=== PATIENT | female | born 1950 | race Caucasian/White ===

== ENCOUNTER 2020-06-12 10:16 | Emergency (ER) | payer OTHER, SELFPAY ==
[2020-06-12 10:16] VITALS: BP 132/73; PULSE 67; RESP 18; TEMP 36.7; O2SAT 97; BMI 22.3
--- NOTE | 2020-06-12 10:43 | ECG_ITS ---
APPROVED REPORT Exam: Resting ECG HR:66 bpm ECG Measurements Heart Rate 66 AXES NC 148 P 53 QRSd 92 QRS 62 QT 442 T 30 QTc 463 Conclusion Normal sinus rhythm Normal ECG Electronically signed by : Darrick Benedict, 06/13/2020 06:37:16
[2020-06-12 10:47] LABS: POC Glucose,Bedside 140 (70-110)
--- NOTE | 2020-06-12 10:47 | HMH.EDGENADL ---
ED Disposition Clinical Impression: Peripheral vertigo Qualifiers: Laterality: unspecified laterality Qualified Code(s): H81.399 - Other peripheral vertigo, unspecified ear Disposition: Home, Self-Care Condition on Discharge: Good Instructions: DI for Vertigo Prescriptions: Promethazine HCl [Phenergan 25mg tab] 25 mg PO Q6HP PRN #10 tab PRN Reason: Nausea And Vomiting Prescription Printed Meclizine HCl [Antivert 25mg tablet] 25 mg PO TIDP PRN #15 tab PRN Reason: Vertigo Prescription Printed Referrals: PCP,No [Primary Care Provider] - - Critical Care Critical Care Time: No Attestation: On 06/12/20, the high probability of a clinically significant, sudden or life threatening deterioration of the following system(s) required my full and direct attention, intervention and personal management. The time I documented below is in addition to time spent performing reported procedures but includes the following listed in this critical care notation. Medical Decision Making - Rush Inquiry Pt receiving controlled substance: No Vital Signs: 06/12/20 10:16 06/12/20 11:16 06/12/20 11:32 Temperature 98.0 F Temperature Source Oral Pulse Rate Pulse Rate [Left Radial] 67 69 71 Respiratory Rate 18 18 18 Blood Pressure Blood Pressure [Right Arm] 132/73 133/70 131/78 Blood Pressure Mean [Right Arm] 92 91 95 Blood Pressure Source [Right Arm] Automatic Cuff Blood Pressure Position [Right Arm] Sitting 02 Sat by Pulse Oximetry 97 98 100 Oxygen Delivery Method Room Air Room Air Room Air 06/12/20 12:39 06/12/20 13:00 06/12/20 15:07 Temperature 98.0 F Temperature Source Pulse Rate 69 Pulse Rate [Left Radial] 85 75 Respiratory Rate 18 18 Blood Pressure 102/56 L Blood Pressure [Right Arm] 113/61 109/62 L Blood Pressure Mean [Right Arm] 78 77 Blood Pressure Source [Right Arm] Blood Pressure Position [Right Arm] 02 Sat by Pulse Oximetry 95 100 Oxygen Delivery Method Room Air Room Air Room Air - Lab Data Lab results reviewed: Yes: I reviewed the patient's lab results. Lab Results 06/12/20 10:35: WBC 7.7, RBC 4.77, Hgb 14.4, Hct 43.9, MCV 91.9, MCH 30.1, MCHC 32.7, RDW 13.4, Plt Count 271, MPV 9.0, Neut % (Auto) 84.4 H, Lymph % (Auto) 10.2, [place] % (Auto) 3.9, Eos % (Auto) 1.1, Baso % (Auto) 0.5, Neut # (Auto) 6.5, Lymph # (Auto) 0.8, [place] # (Auto) 0.3, Eos # (Auto) 0.1, Baso # (Auto) 0.0 06/12/20 10:35: Sodium 134 L, Potassium 3.5, Chloride 98, Carbon Dioxide 29, Anion Gap 10.5, BUN 17, Creatinine 0.90, Estimated Creat Clear 50, Estimated GFR 62, Est GFR ( Amer) 75, Glucose 178 H, Calcium 9.7, Total Bilirubin 0.8, AST 42 H, ALT 38, Alkaline Phosphatase 92, Troponin I < 0.01, Total Protein 7.4, Albumin 4.4, Globulin 3.0, Albumin/Globulin Ratio 1.5 06/12/20 10:35: SARS-CoV-2 IgG Ab (Rapid) Negative, SARS-CoV-2 IgM Ab (Rapid) Negative 06/12/20 10:38: POC Glucose 140 H 06/12/20 14:00: Urine Color Yellow, Urine Appearance Clear, Urine pH 6.5, Ur Specific [place] 1.010, Urine Protein Negative, Urine Glucose (UA) Negative, Urine Ketones 1+, Urine Blood Negative, Urine Nitrate Negative, Urine Bilirubin Negative, Urine Urobilinogen 0.2, Ur Leukocyte Esterase Negative, Urine RBC None, Urine WBC None, Ur Squamous Epith Cells 3-5, Urine Bacteria None Result diagrams: 06/12/20 10:35 06/12/20 10:35 Orders (Tests/Meds): ED MEDICATIONS Discontinued Medications Generic Name Dose Route Start Last Admin Trade Name Freq PRN Reason Stop Dose Admin Diazepam 2 mg 06/12/20 11:20 06/12/20 11:46 Diazepam 10mg/2ml Syringe IV 06/12/20 11:21 2 mg ONCE ONE Administration Sodium Chloride 1,000 mls @ 999 mls/hr 06/12/20 11:15 06/12/20 11:07 Sod Chlor 0.9% 1000ml Bag IV 06/12/20 12:15 999 mls/hr .Q1H1M MATILDE Administration Iopamidol 100 ml 06/12/20 13:13 06/12/20 13:14 Iopamidol-370 (76%);100ml Bottle IV 06/12/20 13:14 100 ml ONCE ONE Administration Meclizine
[2020-06-12 11:07] LABS: Basophils % 0.5 % (0.1-2.0); Eosinophils # 0.1 K/mm3 (0.0-0.4); Eosinophils % 1.1 % (0.1-12.0); Hematocrit 43.9 % (37.0-47.0); Hemoglobin 14.4 g/dL (12.2-16.2); Lymphocytes # 0.8 K/mm3 (0.7-4.5); Lymphocytes % 10.2 % (10-50); Mean Corpuscular HGB Conc 32.7 g/dL (31.8-35.4); Mean Corpuscular Hemoglobin 30.1 pg (27.0-31.2); Mean Corpuscular Volume 91.9 fl (81-99); Monocytes # 0.3 K/mm3 (0.1-1.0); Monocytes % 3.9 % (1.7-9.3); Neutrophils # 6.5 K/mm3 (1.8-7.8); Neutrophils % 84.4 % (37.0-80.0); Platelet Count 271 K/mm3 (142-424); Red Blood Count 4.77 M/mm3 (4.20-5.40); Red Cell Distribution Width 13.4 % (11.5-17.5); White Blood Count 7.7 K/mm3 (4.8-10.8)
[2020-06-12 11:08] LABS: Alanine Aminotransferase 38 U/L (12-78); Albumin Level 4.4 g/dl (3.5-5.0); Albumin/Globulin Ratio 1.5 (1.1-1.8); Alkaline Phosphatase 92 U/L (38-126); Anion Gap 10.5 mEq/L (5-15); Aspartate Amino Transferase 42 U/L (14-36); Bilirubin,Total 0.8 mg/dl (0.2-1.3); Blood Urea Nitrogen 17 mg/dl (7-17); Calcium 9.7 mg/dl (8.4-10.2); Carbon Dioxide 29 mmol/L (22.0-30.0); Chloride 98 mmol/L (98-107); Creatinine Clearance Estimated 50 mL/min (50-200); Estimated Glomerular Filt Rate 62 ml/min (>60); GFR (African American) 75 ML/MIN (>60); Glucose 178 mg/dl (74-100); Potassium 3.5 mmoL/L (3.5-5.1); Sodium 134 mmol/L (136-145); Total Protein,Serum 7.4 g/dl (6.3-8.2)
--- NOTE | 2020-06-12 11:14 | CT_ITS ---
Procedure: CT ANGIO HEAD CLINICAL HISTORY: vertigo COMPARISON: No exams were available for comparison TECHNIQUE: IV Contrast: 100ml Isovue 370 Axial images obtained with sagittal and coronal reformats. All CT scans at the facility use one or more dose reduction, viz: automated exposure control, ma/kV adjustment per patient size (including targeted exams where dose is matched to indication, i.e. head), or iterative reconstruction technique. FINDINGS: There is excellent vascular opacification. The [id number] appears normal with no evidence of aneurysm or significant stenosis. The right middle cerebral artery and anterior cerebral artery appear grossly normal. The intracranial portion of the right internal carotid is unremarkable. The left middle cerebral artery and left anterior cerebral artery appear grossly normal. The intracranial portion of the left internal carotid is normal. The posterior cerebral circulation is unremarkable with no evidence of aneurysm or significant stenosis. Again noted is a carola cisterna magna a normal variation. There is no significant cortical atrophy or ischemic white matter changes. IMPRESSION: Essentially unremarkable CT angiogram of the brain Dictated by: Dr. Tj Otto MD 06/12/2020 19:15 Dr. Tj Otto MD in [facility] 06/12/2020 19:15
--- NOTE | 2020-06-12 11:14 | CT_ITS ---
PROCEDURE: CT HEAD/BRAIN WO CON CLINICAL INDICATION: vertigo headache, dizziness COMPARISON: No exams were available for comparison TECHNIQUE: Axial images obtained. All CT scans at the facility use one or more dose reduction, viz: automated exposure control, ma/kV adjustment per patient size (including targeted exams where dose is matched to indication, i.e. head), or iterative reconstruction technique. FINDINGS: No midline shift, mass effect, intracranial hemorrhage, hydrocephalus, or extra-axial fluid collection is evident. There is a carola cisterna magna a normal variation the calvarium has an unremarkable appearance. No mastoid effusion. The internal auditory canals appear normal. No sinus air-fluid level. IMPRESSION: No acute intracranial finding Dictated by: Dr. Tj Otto MD 06/12/2020 14:02 Dr. Tj Otto MD in [facility] 06/12/2020 14:02
--- NOTE | 2020-06-12 11:14 | CT_ITS ---
Procedure: CT ANGIO HEAD CLINICAL HISTORY: vertigo COMPARISON: CT CT HEAD/BRAIN WO CON from 06/12/2020 TECHNIQUE: IV Contrast: 100ml Isovue 370 Axial images obtained with sagittal and coronal reformats. All CT scans at the facility use one or more dose reduction, viz: automated exposure control, ma/kV adjustment per patient size (including targeted exams where dose is matched to indication, i.e. head), or iterative reconstruction technique. FINDINGS: There is excellent vascular opacification. The [id number] appears normal with no evidence of aneurysm or significant stenosis. The right middle cerebral artery and anterior cerebral artery appear grossly normal. The intracranial portion of the right internal carotid is unremarkable. The left middle cerebral artery and left anterior cerebral artery appear grossly normal. The intracranial portion of the left internal carotid is normal. The posterior cerebral circulation is unremarkable with no evidence of aneurysm or significant stenosis. Again noted is a carola cisterna magna a normal variation. There is no significant cortical atrophy or ischemic white matter changes. There is prominent apical pleural parenchymal scarring bilaterally. Suggest consideration of follow-up PA and lateral chest for better evaluation. IMPRESSION: Essentially unremarkable CT angiogram of the brain Dictated by: Dr. Tj Otto MD 07/20/2020 15:39 Dr. Tj Otto MD in [facility] 07/20/2020 15:39
[2020-06-12 11:16] VITALS: BP 133/70; PULSE 69; RESP 18; O2SAT 98
[2020-06-12 11:20] LABS: Troponin I < 0.01 ng/ml (0.00-0.034)
[2020-06-12 11:32] VITALS: BP 131/78; PULSE 71; RESP 18; O2SAT 100
[2020-06-12 11:38] LABS: Coronavirus 19 IgG Antibody Negative (Negative); Coronavirus 19 IgM Antibody Negative (Negative)
[2020-06-12 12:39] VITALS: BP 113/61; PULSE 85; RESP 18; O2SAT 95
[2020-06-12 13:00] VITALS: BP 109/62; PULSE 75; O2SAT 100
[2020-06-12 14:05] LABS: Microscopic, Urine URINE MICROSCOPIC (MICROSCOPIC)
[2020-06-12 14:19] LABS: Appearance,Urine CLEAR (Clear); Bilirubin,Urine Negative (Negative); Blood, Urine Negative (Negative); Color,Urine YELLOW (Yellow); Glucose,Urine (UA) Negative (Negative); Ketones,Urine 1+ (Negative); Leukocyte Esterase,Urine Negative (Negative); Nitrate,Urine Negative (Negative); PH,Urine 6.5 (5.0-8.5); Protein,Urine Negative (Negative); Urobilinogen,Urine 0.2 EU/dl (0.2)
[2020-06-12 15:07] VITALS: BP 102/56; PULSE 69; RESP 18; TEMP 36.7; O2SAT 100
[2020-07-26 13:03] LABS: POC Glucose,Bedside 190 (70-110)
== END 2020-06-12 14:58 | disposition home or self-care (01) ==
PROVIDERS: Emergency Provider Emergency Medicine
DX: H81.399 Other peripheral vertigo, unspecified ear (principal); R73.9 Hyperglycemia, unspecified; Z20.822 Contact with and (suspected) exposure to COVID-19; Z01.84 Encounter for antibody response examination
CPT/HCPCS: 70450; 70496; 70498; 80053; 81001; 82962; 84484; 85025; 86328; 93005; 96365; 96375; 99284; J2405; Q9967; U0003

== ENCOUNTER 2021-11-28 14:52 | Outpatient (RCR) | payer OTHER, SELFPAY ==
--- NOTE | 2021-11-28 15:58 | HMH.PTOPEV ---
PT Outpatient Evaluation Rehab PT Outpatient Evaluation Start: 11/28/21 15:48 Freq: Status: Active Protocol: Document 11/28/21 15:48 MEGADARBY (Rec: 11/28/21 15:57 ISAURAMINERVA [id number]) Electronically Signed By Kanu Lance PT 11/28/21 15:48 Outpatient Therapy Subjective History Subjective History This is the initial Physical Therapy vestibular evaluation for Kath Forbes. Pt is a 71 y/ o female referred to PT for c/ o dizziness . Pt reports she had vertigo ~ 1 year ago, and it had self resolution. Pt reports this bout began last week while at the [employer] . Pt reports stylist laid her back and she began having spinning feeling and nausea. Pt reports she went home and began taking Meclazine daily to relieve symptoms. Chief Complaint Other Symptom Type Other Symptoms Relieved By Rest/Positioning Symptoms Aggravated By Supine,Bending/Stooping, Twisting Prior Functional Limitations None Current Functional Limitations Bending/Stooping Symptom Description Intermittent Balance Eval Subjective Hx of Complaint Comment began insidiously 1 week ago at [facility] Chief Complaint vertigo Yes Prior Functional Limitations Prior Functional [place] Level none Hx of Falls Hx Falls No Gait/Posture Asssessment General Gait Observation No Deviations/Normal Assistive Devices None / NA Level of Transfer Assist Independent Hip Observation in Gait Swing No Deviation Hip Observation in Gait Stance No Deviation Ankle/Foot Observation in Gait Swing No Deviation Ankle/Foot Observation in Gait Stance No Deviation Body Alignment Posture Relaxed Nystagmus Nystagmus Presence Bilateral Nystagmus Description Right Direction,Geotropic,Left Torsion Outpatient Therapy Assessment Impairments Problems/Impairmments Impaired Balance,Impaired Self Care/Self Management Prognosis Rehab Potential Good Clinical Impression Consistent with Diagnosis Yes Short Term Goals Number of Weeks 3 Improve Balance Yes: decreased c/o vertigo Patient to be Ind w/ HEP Yes [facility] Goals Number of Weeks 6 Improve A
== END 2021-11-28 14:55 | disposition home or self-care (01) ==
LOC: PT 14:52
PROVIDERS: Visit Provider Family Medicine
DX: R42 Dizziness and giddiness (principal)
CPT/HCPCS: 97110; 97163

== ENCOUNTER 2022-09-13 21:03 | Emergency (ER) | payer OTHER, SELFPAY ==
[2022-09-13 21:10] VITALS: BP 148/71; PULSE 70; O2SAT 97
[2022-09-13 21:16] VITALS: BP 148/71; PULSE 69; RESP 18; TEMP 36.7; O2SAT 98; BMI 23.1
--- NOTE | 2022-09-13 21:19 | XR_ITS ---
PROCEDURE INFORMATION: Exam: XR Pelvis Exam date and time: 09/13/2022 9:47 PM Age: 72 years old Clinical indication: Injury or trauma; Fall; Blunt trauma (contusions or hematomas); Does not apply; Pelvic region; Patient HX: Denies any pelvic/hip pain TECHNIQUE: Imaging protocol: Radiologic exam of the pelvis. Views: 1 or 2 view. COMPARISON: CR [id number] HIP LT 2-3V W/PELVIS IF PERFOR 11/21/2016 4:32 PM FINDINGS: Bones/joints: Unremarkable. No acute fracture. Soft tissues: Unremarkable. IMPRESSION: No acute findings.
--- NOTE | 2022-09-13 21:19 | XR_ITS ---
PROCEDURE INFORMATION: Exam: XR Chest Exam date and time: 09/13/2022 9:48 PM Age: 72 years old Clinical indication: Injury or trauma; Fall; Blunt trauma (contusions or hematomas); Patient HX: Denies any chest pain TECHNIQUE: Imaging protocol: Radiologic exam of the chest. Views: 1 view. COMPARISON: CT ANGIO NECK 06/12/2020 12:11 PM FINDINGS: Lungs: Coarse interstitial lung markings likely chronic. Granulomatous change. No consolidation. Pleural spaces: Unremarkable. No pleural effusion. No pneumothorax. Heart/Mediastinum: Unremarkable. No cardiomegaly. Bones/joints: Unremarkable. IMPRESSION: No acute findings.
--- NOTE | 2022-09-13 21:19 | CT_ITS ---
PROCEDURE INFORMATION: Exam: CT Maxillofacial Without Contrast Exam date and time: 09/13/2022 10:19 PM Age: 72 years old Clinical indication: Injury or trauma; Blunt trauma (contusions or hematomas); Patient HX: Bruising to entire right side of face due to fall. TECHNIQUE: Imaging protocol: Computed tomography of the face without contrast. Radiation optimization: All CT scans at this facility use at least one of these dose optimization techniques: automated exposure control; mA and/or kV adjustment per patient size (includes targeted exams where dose is matched to clinical indication); or iterative reconstruction. REPORTING DATA: Count of CT and Cardiac NM exams in prior 12 months: This patient has received 2 known CTs and 0 known cardiac nuclear medicine studies in the 12 months prior to the current study. COMPARISON: CT HEAD/BRAIN WO CON 09/13/2022 10:16 PM FINDINGS: Orbital cavities: Orbits are normal. Globes are unremarkable. Bones/joints: No acute fracture. Paranasal sinuses: Normal. No air-fluid levels. Soft tissues: Unremarkable. IMPRESSION: No acute findings.
--- NOTE | 2022-09-13 21:19 | CT_ITS ---
PROCEDURE INFORMATION: Exam: CT Head Without Contrast Exam date and time: 09/13/2022 10:16 PM Age: 72 years old Clinical indication: Injury or trauma; Fall; Blunt trauma (contusions or hematomas); Consciousness not specified; Patient HX: Patient fell, bruising to left side of face. ; Additional info: [facility] TECHNIQUE: Imaging protocol: Computed tomography of the head without contrast. Radiation optimization: All CT scans at this facility use at least one of these dose optimization techniques: automated exposure control; mA and/or kV adjustment per patient size (includes targeted exams where dose is matched to clinical indication); or iterative reconstruction. REPORTING DATA: Count of CT and Cardiac NM exams in prior 12 months: This patient has received 2 known CTs and 0 known cardiac nuclear medicine studies in the 12 months prior to the current study. COMPARISON: CT HEAD/BRAIN WO CON 06/12/2020 12:07 PM FINDINGS: Brain: Prominent retrocerebellar CSF space is unchanged. Cerebral ventricles: No ventriculomegaly. Paranasal sinuses: No fluid levels. Mastoid air cells: Visualized mastoid air cells are well aerated. Bones/joints: No acute fracture. Soft tissues: Right maxillary soft tissue swelling. IMPRESSION: No acute intracranial findings.
--- NOTE | 2022-09-13 21:19 | CT_ITS ---
PROCEDURE INFORMATION: Exam: CT Cervical Spine Without Contrast Exam date and time: 09/13/2022 10:16 PM Age: 72 years old Clinical indication: Injury or trauma; Fall; Blunt trauma TECHNIQUE: Imaging protocol: Computed tomography of the cervical spine without contrast. Radiation optimization: All CT scans at this facility use at least one of these dose optimization techniques: automated exposure control; mA and/or kV adjustment per patient size (includes targeted exams where dose is matched to clinical indication); or iterative reconstruction. REPORTING DATA: Count of CT and Cardiac NM exams in prior 12 months: This patient has received 2 known CTs and 0 known cardiac nuclear medicine studies in the 12 months prior to the current study. COMPARISON: CT ANGIO NECK 06/12/2020 12:11 PM FINDINGS: Bones/joints: No acute fracture. Normal alignment. No significant disc bulge or herniation. No severe spinal canal stenosis. No significant neural foraminal narrowing. Multilevel degenerative disc and joint space changes most pronounced at C5/6. Lungs: Lung apices are normal. Soft tissues: Unremarkable. IMPRESSION: No acute findings.
--- NOTE | 2022-09-13 21:19 | XR_ITS ---
PROCEDURE INFORMATION: Exam: XR Left Ankle Exam date and time: 09/13/2022 9:52 PM Age: 72 years old Clinical indication: Injury or trauma; Blunt trauma; Patient HX: C/O left ankle pain S/P fall TECHNIQUE: Imaging protocol: Radiologic exam of the left ankle. Views: 3 or more views. COMPARISON: CR [id number] ANKLE-LT-3 VIEWS 11/21/2016 4:34 PM FINDINGS: Bones/joints: Normal. Soft tissues: Normal. IMPRESSION: No acute findings.
--- NOTE | 2022-09-13 21:20 | PC.NURSE ---
Dr. Crawford at [facility]
--- NOTE | 2022-09-13 21:21 | HMH.EDFALL ---
Discharge Plan Disposition Patient Disposition: Home, Self-Care Prescriptions Prescriptions: New ibuprofen 400 mg tablet 400 mg PO Q8H PRN (Reason: fever or pain) Qty: 30 0RF Referrals Follow up/Referrals: Calin Poon DO [Staff Physician] - 3 days Dm Chaparor MD [Primary Care Provider] - See instructions Activity Restrictions/Add. Instructions Additional Instructions/Restrictions: Left ankle should have the splint on at all times. Ice pack the area. Ibuprofen for pain. Follow-up with her primary care doctor head injury facial trauma. Follow-up with Dr. Poon the orthopedic physician as an outpatient for left ankle sprain Clinical Impressions Clinical Impression: Fall, Closed head injury, Abrasion of scalp, initial encounter, Contusion of face, scalp and neck, Left ankle sprain Discharge ED Provider: Lindsey Crawford [facility] General Chief Complaint: Fall Stated Complaint: AO04@1700 injured L ankle Time Seen by Provider: 09/13/22 21:05 Mode of Arrival: Wheelchair Source of Information: Patient Limitations: No Limitations Description of Symptoms (Recalled from ER Triage Doc. by RN): pt states that at approx 1700 she was walking when she tripped and fell injuring her left ankle, right side of her face and right knee. Is no longer able to bear weight on her left ankle. History of Present Illness HPI Narrative: Patient is a 72-year-old female who fell from a standing position. Patient was walking and tripped because of her left foot was on top of a stick and patient fell down to the ground hit her right side of her head face right shoulder right knee. Patient stated that she did not pass out. She did have some dizziness when she moved her left foot. Patient denies any neck pain or headache. But patient stated that there is some soreness to her right temporal area right side of her face at the cheekbone. Patient's also has abrasion to her right shoulder right knee which she said is not hurting. She describes most of the discomfort to be in the ankle on the outer aspect. This happened around 5 PM. When she was moving her foot in terms of rotating it she says she has severe pain and something got caught in her ankle so she brought herself in. She is not on any blood thinners at home. She took ibuprofen around 530. complaint: fall Onset (ago): hour(s) Fall from: standing Fall witnessed: yes, by family (Witnessed by friend) Place fall occurred: street Loss of consciousness: none Prolonged down time: no Symptoms prior to fall: none Context: tripped/slipped Location of injury: head and face Location of injury - extremities: Left: ankle and Right: shoulder and knee Severity: moderate Severity scale (1-10): 6 Quality: dull and aching Associated symptoms (after fall): other (Difficulty with walking on the left ankle. Soreness in her head and face.) Related Data Previous Rx's Medication Instructions Recorded ibuprofen 400 mg tablet 400 mg PO Q8H PRN fever or pain 09/13/22 #30 tabs Allergies Allergy/AdvReac Type Severity Reaction Status Date / Time No Known Allergies Allergy Unverified 05/21/17 14:24 [facility] Disclaimer: The information contained in this section may have been updated after the patient was seen, as this information can be updated by other users. Social History Smoking Status: Never smoker alcohol intake: never current occupational status: employed Travel in the last 8 weeks: Inside the [place] ROS Obtained: Yes All systems reviewed & no additional complaints except as documented Constitutional Constitutional: Reports headache(s) ENT Ears, Nose, Mouth, and Throat: Reports headache(s) Musculoskeletal Musculoskeletal: Reports arthralgias (Left ankle pain. Right knee abrasion and right shoulder abrasion) Neurologic Neurologic: Reports headache(s) Physical Exam General General appearance:
[2022-09-13 21:30] VITALS: BP 137/73; PULSE 68; O2SAT 97
[2022-09-13 22:27] VITALS: BP 138/80; PULSE 68; O2SAT 99
[2022-09-13 23:39] VITALS: BP 140/80; PULSE 70; RESP 18; TEMP 36.6; O2SAT 99
== END 2022-09-13 23:15 | disposition home or self-care (01) ==
PROVIDERS: Emergency Provider Emergency Medicine; PCP Family Medicine
DX: S00.01XA Abrasion of scalp, initial encounter (principal); S93.402A Sprain of unspecified ligament of left ankle, initial encounter; W01.0XXA Fall on same level from slipping, tripping and stumbling without subsequent striking against object, initial encounter
CPT/HCPCS: 29515; 70450; 70486; 71045; 72125; 72170; 73610; 99284; 99285

== ENCOUNTER 2023-03-11 15:05 | Emergency (ER) | payer OTHER, SELFPAY ==
[2023-03-11 15:20] VITALS: BP 115/63; PULSE 89; RESP 20; TEMP 36.9; O2SAT 95; BMI 23.1
[2023-03-11 15:32] LABS: Coronavirus 19, PCR Not Detected (NotDetected); Influenza A, PCR Not Detected (NotDetected); Influenza B, PCR Not Detected (NotDetected)
--- NOTE | 2023-03-11 15:33 | EXP.UTC ---
Discharge Plan Disposition Patient Disposition: Home, Self-Care Condition: Good Prescriptions Prescriptions: New ondansetron 4 mg Tablet,Disintegrating 4 mg PO Q8H PRN (Reason: Nausea) Qty: 20 0RF No Action ibuprofen 400 mg tablet 400 mg PO Q8H PRN (Reason: fever or pain) Qty: 30 0RF Referrals Follow up/Referrals: Dm Chaparro MD [Primary Care Provider] - See instructions Activity Restrictions/Add. Instructions Additional Instructions/Restrictions: Drink extra fluids with and between meals. If you have difficulty drinking, try very small amounts of water or suck on ice chips. ? Avoid fruit juices, as these do not replace minerals and can actually increase diarrhea. ? Children and adults can use sports drinks to replenish electrolytes. Younger children and infants should use products formulated for children, like oral rehydration solutions. ? Eat food in small amounts and let your stomach recover. ? Get lots of rest. You may feel tired or weak. ? No greasy or fried foods for the next 24-48 hours BRAT diet Bananas Rice Apples and [place] ? Make sure to drink plenty of liquids ? Return if needed ? Straight to ER if any life threatening symptoms ? Zofran as prescribed ? Follow up with family doctor in the next 48-72 hours if no improvement or any worsening of symptoms Clinical Impressions Clinical Impression: Nausea Instructions Patient Instructions: DI for Nausea -- Adult, Ondansetron Discharge ED Provider: Kristina Davila [facility] General Stated complaint: weakness,Abd pain Mode of Arrival: Ambulatory Source of Information: Patient Limitations: No Limitations Time Seen by Provider: 03/11/23 15:25 Description of Symptoms (Recalled from Triage Doc. by RN): PATIENT C/O WEAKNESS AND NAUSEA X 3 DAYS. DENIES VOMITING AND DIARRHEA HEENT Symptoms (Recalled from RN notes): No Resp Symptoms (Recalled from RN notes): No Skin Symptoms (Recalled from RN notes): No MS Symptoms (Recalled from RN notes): No Functional Status (Recalled from RN notes): WNL History of Present Illness Provider Complaint: Patient states that she has been having nausea and weakness on and off for the last 3 days States that she had some nausea on Saturday and felt weak but then started feeling better and yesterday she still felt weak with some nausea but was able to go to [employer] and was around family States that today she hasnt had any vomiting or diarrhea but felt weak and she was able to drink small amounts and eat small amounts and kept it down but was still having nausea so she came in Denies known sick contacts Denies fever, denies vomiting or diarrhea and denies any other complaints Related Data Previous Rx's Medication Instructions Recorded ibuprofen 400 mg tablet 400 mg PO Q8H PRN fever or pain 09/13/22 #30 tabs ondansetron 4 mg disintegrating 4 mg PO Q8H PRN Nausea #20 tabs 03/11/23 tablet Allergies Allergy/AdvReac Type Severity Reaction Status Date / Time No Known Allergies Allergy Unverified 05/21/17 14:24 Worker's Comp Is this a Worker's Comp case?: No PFSH [facility] Disclaimer: The information contained in this section may have been updated after the patient was seen, as this information can be updated by other users. Medical History (Updated 03/11/23 @ 16:03 by Kristina Davila APRN) No significant past medical history Social History (Updated 09/13/22 @ 23:34 by Lindsey Crawford MD) Smoking Status: Never smoker alcohol intake: never current occupational status: employed Travel in the last 8 weeks: Inside the [place] ROS Obtained: Yes All systems reviewed & no additional complaints except as documented and Yes Systems reviewed as appropriate & no additional complaints except as documented Constitutional Constitutional: Reports system reviewed and no additional complaints, except as docum
[2023-03-11 16:08] VITALS: BP 115/63; PULSE 89; RESP 20; TEMP 36.9; O2SAT 95
== END 2023-03-11 16:11 | disposition home or self-care (01) ==
PROVIDERS: Emergency Provider Nurse Practitioner; PCP Family Medicine
DX: R11.0 Nausea (principal); R53.1 Weakness
CPT/HCPCS: 87636; 99204; 99212; G0463

== ENCOUNTER 2023-03-14 15:37 | Emergency (ER) | payer OTHER, SELFPAY ==
[2023-03-14 15:39] VITALS: BP 117/72; PULSE 83; RESP 18; TEMP 36.6; O2SAT 95; BMI 22.4
--- NOTE | 2023-03-14 16:08 | EXP.UTC ---
Discharge Plan Disposition Patient Disposition: Home, Self-Care Condition: Good Prescriptions Prescriptions: New ondansetron 4 mg Tablet,Disintegrating 4 mg PO Q8H PRN (Reason: Nausea) Qty: 12 0RF No Action ibuprofen 400 mg tablet 400 mg PO Q8H PRN (Reason: fever or pain) Qty: 30 0RF ondansetron 4 mg Tablet,Disintegrating 4 mg PO Q8H PRN (Reason: Nausea) Qty: 20 0RF Referrals Follow up/Referrals: Dm Chaparro MD [Primary Care Provider] - See instructions Activity Restrictions/Add. Instructions Additional Instructions/Restrictions: Drink plenty of fluids. Take tylenol for pain or fever. Take the medications as directed. Follow up with your regular doctor within the next 24 to 48 hours. GO TO THE ER FOR ANY WORSENING SYMPTOMS Clinical Impressions Clinical Impression: Gastroenteritis Stand Alone Forms Stand Alone Forms: Work/School Release Instructions Patient Instructions: Viral Gastroenteritis, DI for Viral Gastroenteritis -- Adult, Ondansetron Discharge ED Provider: Kenny Ken [facility] General Stated complaint: weakness and follow up Time Seen by Provider: 03/14/23 16:08 History of Present Illness Provider Complaint: She states that for the past 6 days she has had nausea. She was having vomiting, but she has began taking zofran and that has resolved. At this time she is feeling weak. Related Data Previous Rx's Medication Instructions Recorded ibuprofen 400 mg tablet 400 mg PO Q8H PRN fever or pain 09/13/22 #30 tabs ondansetron 4 mg disintegrating 4 mg PO Q8H PRN Nausea #20 tabs 03/11/23 tablet ondansetron 4 mg disintegrating 4 mg PO Q8H PRN Nausea #12 tabs 03/14/23 tablet Allergies Allergy/AdvReac Type Severity Reaction Status Date / Time No Known Allergies Allergy Verified 03/14/23 16:40 [facility] Disclaimer: The information contained in this section may have been updated after the patient was seen, as this information can be updated by other users. Medical History (Updated 03/14/23 @ 17:40 by Kenny Ken APRN) No significant past medical history Social History Smoking Status: Never smoker alcohol intake: never current occupational status: employed Travel in the last 8 weeks: Inside the [place] ROS Obtained: Yes All systems reviewed & no additional complaints except as documented Constitutional Constitutional: Denies chills, Denies fever(s) and Reports poor appetite ENT Ears, Nose, Mouth, and Throat: Denies dizziness and Denies sore throat Cardiovascular Cardiovascular: Denies dyspnea Respiratory Respiratory: Denies chest congestion, Denies cough and Denies dyspnea Gastrointestinal Gastrointestingal: Reports as per HPI; Denies abdominal pain Genitourinary Female Genitourinary: Denies difficulty voiding, Denies dysuria, Denies hematuria, Denies urinary frequency, Denies urinary incontinence, Denies urinary hesitancy and Denies urinary urgency Musculoskeletal Musculoskeletal: Denies arthralgias Integumentary/Breasts Skin/Breast: Denies rash Neurologic Neurologic: Denies dizziness Physical Exam General General appearance: alert and in no apparent distress Head Head exam: atraumatic and normocephalic Eye Eye exam: Present normal appearance, PERRL and EOMI ENT ENT exam: Present normal exam, normal oropharynx, mucous membranes moist, TM's normal bilaterally and normal external ear exam Neck Neck exam: Present normal inspection, full ROM and trachea midline; Absent tenderness, meningismus or lymphadenopathy Chest Chest inspection: Present normal inspection and symmetric chest wall rise; Absent tenderness, rash or abscess Respiratory Respiratory exam: Present normal lung sounds bilaterally; Absent respiratory distress, wheezes or stridor Cardiovascular Cardiovascular exam: Present regular rate and normal rhythm; Absent irregular rhythm, systolic murmur, diastolic m
[2023-03-14 17:15] LABS: Basophils % 0.3 % (0.1-2.0); Eosinophils # 0.1 K/mm3 (0.0-0.4); Eosinophils % 1.2 % (0.1-12.0); Hematocrit 37.8 % (37.0-47.0); Hemoglobin 12.8 g/dL (12.2-16.2); Lymphocytes # 1.1 K/mm3 (0.7-4.5); Lymphocytes % 12.1 % (10-50); Mean Corpuscular Hemoglobin 30.5 pg (27.0-31.2); Mean Corpuscular Volume 89.7 fl (81-99); Mean Platelet Volume 10.8 fl (7.4-10.4); Monocytes # 0.5 K/mm3 (0.1-1.0); Monocytes % 5.1 % (1.7-9.3); Neutrophils # 7.2 K/mm3 (1.8-7.8); Neutrophils % 81.3 % (37.0-80.0); Platelet Count 176 K/mm3 (142-424); Red Blood Count 4.22 M/mm3 (4.20-5.40); Red Cell Distribution Width 13.8 % (11.5-17.5); White Blood Count 8.8 K/mm3 (4.8-10.8)
[2023-03-14 17:18] LABS: Alanine Aminotransferase 112 U/L (12-78); Albumin Level 3.3 g/dl (3.5-5.0); Albumin/Globulin Ratio 0.9 (1.1-1.8); Alkaline Phosphatase 209 U/L (38-126); Amylase 57 U/L (30-110); Anion Gap 10.4 mEq/L (5-15); Aspartate Amino Transferase 118 U/L (14-36); Bilirubin,Total 1.1 mg/dl (0.2-1.3); Blood Urea Nitrogen 14 mg/dl (7-17); Calcium 8.3 mg/dl (8.4-10.2); Carbon Dioxide 33 mmol/L (22.0-30.0); Chloride 95 mmol/L (98-107); Creatinine Clearance Estimated 48 mL/min (50-200); Estimated Glomerular Filt Rate 55 ml/min (>60); GFR (African American) 66 ML/MIN (>60); Globulin 3.7 g/dL (1.3-3.2); Glucose 115 mg/dl (74-100); Lipase 95 U/L (23-300); Potassium 3.4 mmoL/L (3.5-5.1); Sodium 135 mmol/L (136-145)
[2023-03-14 17:56] VITALS: BP 117/72; PULSE 83; RESP 18; TEMP 36.6; O2SAT 95
== END 2023-03-14 17:56 | disposition home or self-care (01) ==
PROVIDERS: Emergency Provider Nurse Practitioner Family; PCP Family Medicine
DX: K52.9 Noninfective gastroenteritis and colitis, unspecified (principal); E86.0 Dehydration; R53.1 Weakness; R11.2 Nausea with vomiting, unspecified; E87.6 Hypokalemia
CPT/HCPCS: 80053; 82150; 83690; 85025; 96360; 99212; 99214; G0463

== ENCOUNTER → 2023-03-21 13:31 | Outpatient (CLI) | payer OTHER, SELFPAY ==
[2023-03-21 15:33] LABS: Alanine Aminotransferase 67 U/L (12-78); Albumin Level 3.6 g/dl (3.5-5.0); Albumin/Globulin Ratio 1.2 (1.1-1.8); Alkaline Phosphatase 135 U/L (38-126); Anion Gap 14.5 mEq/L (5-15); Aspartate Amino Transferase 54 U/L (14-36); Bilirubin,Total 0.5 mg/dl (0.2-1.3); Blood Urea Nitrogen 14 mg/dl (7-17); Calcium 9.2 mg/dl (8.4-10.2); Carbon Dioxide 31 mmol/L (22.0-30.0); Chloride 97 mmol/L (98-107); Estimated Glomerular Filt Rate 62 ml/min (>60); GFR (African American) 75 ML/MIN (>60); Globulin 3.1 g/dL (1.3-3.2); Glucose 105 mg/dl (74-100); Potassium 5.5 mmoL/L (3.5-5.1); Sodium 137 mmol/L (136-145); Total Protein,Serum 6.7 g/dl (6.3-8.2)
[2023-03-23 09:13] LABS: HBsAg Screen Negative (Negative); HCV Ab Non Reactive (Non Reactive); Hep A Ab, IGM Positive (Negative); Hep B Core Ab, IgM Negative (Negative)
== END ==
PROVIDERS: PCP Family Medicine; Visit Provider Family Medicine
DX: R74.8 Abnormal levels of other serum enzymes (principal)
CPT/HCPCS: 36415; 80053; 80074

== ENCOUNTER 2023-10-10 10:22 | Outpatient (CLI) | payer OTHER, SELFPAY ==
--- NOTE | 2023-10-10 10:26 | XR_ITS ---
FINAL REPORT CLINICAL HISTORY: Left hip fx COMPARISON: None FINDINGS: LEFT HIP: Two views of the left hip demonstrate changes from left hip arthroplasty. The hardware appears intact. There is a nondisplaced fracture of the greater trochanter. The joint spaces appear normal. The visualized bony structures are well aligned. No soft tissue abnormality is seen. IMPRESSION: Nondisplaced fracture greater trochanter. Left hip arthroplasty with intact hardware. Reviewed, Interpreted and Dictated by Bart Meza III, MD Transcribed by Stella Foote Authenticated and [facility]
== END 2023-10-10 23:59 | disposition home or self-care (01) ==
LOC: RAD 10:23
PROVIDERS: PCP Family Medicine; Visit Provider Orthopaedic Surgery
DX: M25.552 Pain in left hip (principal); S72.002A Fracture of unspecified part of neck of left femur, initial encounter for closed fracture
CPT/HCPCS: 73502

== ENCOUNTER 2023-11-14 11:13 | Outpatient (CLI) | payer OTHER, SELFPAY ==
--- NOTE | 2023-11-14 11:18 | XR_ITS ---
FINAL REPORT CLINICAL HISTORY: lt hip pain COMPARISON: 10/10/2023 FINDINGS: LEFT HIP: Two views of the left hip demonstrate a left hip arthroplasty. Again noted is a fracture of the greater trochanter. There is evidence of interval healing. No new bony abnormality identified. The visualized bony structures are well aligned. No soft tissue abnormality is seen. IMPRESSION: Interval healing of greater trochanter fracture. No new bony abnormality identified. Reviewed, Interpreted and Dictated by Bart Meza III, MD Transcribed by Stella Foote Authenticated and [facility]
== END 2023-11-14 23:59 | disposition home or self-care (01) ==
LOC: RAD 11:15
PROVIDERS: PCP Family Medicine; Visit Provider Orthopaedic Surgery
DX: M25.552 Pain in left hip (principal); S72.002A Fracture of unspecified part of neck of left femur, initial encounter for closed fracture
CPT/HCPCS: 73502

== ENCOUNTER 2023-12-12 10:00 | Outpatient (RCR) | payer OTHER, SELFPAY ==
--- NOTE | 2023-10-15 12:11 | HMH.PTOPEV ---
PT Outpatient Evaluation Rehab PT Outpatient Evaluation Start: 10/15/23 11:00 Freq: Status: Active Protocol: Document 10/15/23 11:36 ALEXI (Rec: 10/15/23 12:11 ALEXI [id number]) E-signed By Vincenzo Gonsalves, PT Outpatient Therapy Subjective History Subjective History Pt presents s/p left hip hemiarthroplasty sx. on . Pt reports injury to left hip occurred on 09/28/23, fall with fx. to left femoral neck, sx. next day to repair. Pt reports normal post-op left hip soreness/pain, swelling, stiffness, and weakness. Pt reports mostly lateral aspect left hip/thigh area discomfort since sx. Pt also reports low BP since sx. procedure, 'so I 'm keeping a close eye on that , and I'm trying to take in lots of fluids.' New diagnosis of cancer in past 12 No months? Chief Complaint Pain,Stiff,Swelling,Weakness Symptom Type Ache,Throb,Dull Symptoms Relieved By Rest/Positioning,OTC Meds, Prescription Meds Symptoms Aggravated By Physical Activity,Walking Prior Functional Limitations None Current Functional Limitations Housework,Standing,Squatting, Walking,Stairs Symptom Description Constant but Variable Level of pain today (0-10) 5 Pain scale - at its best (0-10) 3 Pain scale - at its worst (0-10) 7 Hip/Knee Eval Gait Observation General Gait Pattern Observation Antalgic Gait,Decrease Weight Bear (L) Assistive Device Assistive Devices Rolling / Wheeled Walker Palpation Tenderness left Knee Palpation Overall Comment 2-3/4 left hip globally Hip Palpation Findings Tenderness MMT right Hip Flexion Strength Grade 5 Normal Hip Abduction Strength Grade 4 Good Hip Adduction Strength Grade 4 Good Hip Extension Strength Grade 4 Good Hip External Rotation Strength Grade 4 Good Hip Internal Rotation Strength Grade 4 Good Knee Extension Strength Grade 5 Normal Knee Flexion Strength Grade 5 Normal left Hip Flexion Strength Grade 3+ Fair+ Hip Abduction Strength Grade 3 Fair Hip Adduction Strength Grade 4- Good- Hip Extension Strength Grade 3 Fair Hip External Rotation Strength Grade 3 Fair Hip Internal Rotation Strength Grade 3 Fair Knee Extension Strength Grade 4- Good- Knee Flexion Strength Grade 4- Good- ROM Hip Flexion w/Knee Flexed Passive Range 0-92 of Motion (degrees) Hip Flexion w/Knee Extended Passive 0-65 Range of Motion (degrees) Hip External Rotation Passive Range of 0-15 Motion (degrees) Hip Internal Rotation Passive Range of 0-15 Motion (degrees) Ankle/Foot Eval MMT bilateral Ankle Dorsiflexion Strength Grade 5 Normal Lower Extremity Functional Index Activities Today, do you or would you have any difficulty at all with: a.Any of your usual work, housework or Quite a bit of difficulty school activities b. Your usual hobbies, recreational or Quite a bit of difficulty sporting activities c. Getting into or out of the bath Extreme difficulty or unable to perform activity d. Walking between rooms Moderate difficulty e. Putting on your shoes or socks Extreme difficulty or unable to perform activity f. Squatting Extreme difficulty or unable to perform activity g. Lifting an object, like a bag of Extreme difficulty or unable groceries from the floor to perform activity h. Performing light activities around Extreme difficulty or unable your home to perform activity i. Performing heavy activities around Extreme difficulty or unable your home to perform activity j. Getting into or out of a car Moderate difficulty k. Walking 2 blocks Quite a bit of difficulty l. Walking a mile Extreme difficulty or unable to perform activity m. Going up or down 10 stairs (about 1 Extreme difficulty or unable flight of stairs) to perform activity n. Standing for 1 hour Extreme difficulty or unable to perform activity o. Sitting for 1 hour Moderate difficulty p. Running on even ground Extreme difficulty or unable to perform activity q. Running on uneven ground Extreme difficulty or unable to perform activity r. Making sharp turns while running fast Extreme difficulty or unable to perform activity s. Hopping Extreme difficulty or unable to perform activity t. Rolling over in bed Moderate difficulty LEFI Score Lower Extremity Functional Index Score 11 Outpatient Therapy Assessment Impairments Problems/Impairmments Palpation Tenderness,Impaired Range of Motion,Impaired Strength,Impaired Gait Pattern ,Impaired Walking,Impaired Standing,Impaired Household Care,Impaired Stair Climbing, Impaired Work Activities, Subjective C/O Pain,Impaired Self Care/Self Management Prognosis Rehab Potential Good Clinical Impression Consistent with Diagnosis Yes Short Term Goals Number of Weeks 4 Decreased Palpation Tenderness Yes: 1-2/4 left hip Increase Range of Motion Yes: 50-75% of WFL AROM LEFT HIP Increase Strength Yes: 3+-4/5 LEFT HIP/LE Improve Gait Pattern with Assistive Yes: WFL SC,QC ON LEVEL Device TERRAIN Increase Ability to Walk Yes: 30MIN Increase Ability to Stand Yes: 30MIN Improve LEFI Score Yes: 20-25 Decrease Subjective C/O Pain Yes: 3/10 W/ABOVE ACTIVITIES Patient to be Ind w/ HEP Yes Men'S Leather Dress Belt Maker Goals Number of Weeks 8-12 Decreased Palpation Tenderness Yes: 0-1/4 LEFT HIP Increase Range of Motion Yes: WFL LEFT HIP AROM Increase Strength Yes: 4-4+/5 LLE Improve Gait Pattern without Assistive Yes: WFL ON LEVEL TERRAIN Device Increase Ability to Walk Yes: 60MIN Increase Ability to Stand Yes: 60MIN Improve Ability For Household Care Yes: 60MIN Improve Ability to Climb Stairs Yes: WFL HHAX1-2 Improve Tolerance to Work Activities Yes: 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 ) Improve LEFI Score Yes: 45-55 Decrease Subjective C/O Pain Yes: 0-2/10 W/ABOVE ACTIVITIES Patient to be Ind w/ Advanced HEP Yes Outpatient Therapy Plan of Care Treatment Plan May Include Therapeutic Exercise Including Home Yes Exercise Program Manual Therapy Techniques Yes Neuromuscular Re-education Yes Therapeutic Activities to Return to Yes Previous Functional/Work Level Gait Training Yes ADL/Self Care Education Yes Dry Needling Yes Thermal Modalities Yes Electrical Stimulation Yes Ultrasound/Phonophoresis Yes Iontophoresis Yes Eval/Re-Eval Yes Frequency Times per week 2-3 Duration Number of Weeks 8-12 Addendums This patient is a candidate for social No or vocational rehab? Patient/Guardian verbally acknowledges Yes understanding of treatment program and consents to further treatment? Patient/Guardian verbally acknowledges Yes understanding of diagnosis, prognosis and goals for treatment? Eval Complexity PT Charges 07322 - Moderate Complexity Shoulder/Elbow Eval Shoulder Objective Measurements Elbow Objective Measurements PHYSICIAN CERTIFICATION: I certify the specified therapy services for Kath Lip Andrei are required, authorized, and reviewed every 30 days.
--- NOTE | 2023-11-14 11:07 | HMH.RHREAS ---
Rehab Reassessment Rehab OP Re-assessment Start: 10/15/23 11:00 Freq: Status: Active Protocol: Document 11/14/23 10:37 ALEXI (Rec: 11/14/23 11:07 ALEXI [id number]) E-signed By Vincenzo Gonsalves, PT Lower Extremity Functional Index Activities Today, do you or would you have any difficulty at all with: a.Any of your usual work, housework or Quite a bit of difficulty school activities b. Your usual hobbies, recreational or Extreme difficulty or unable sporting activities to perform activity c. Getting into or out of the bath Moderate difficulty d. Walking between rooms Moderate difficulty e. Putting on your shoes or socks Extreme difficulty or unable to perform activity f. Squatting Quite a bit of difficulty g. Lifting an object, like a bag of Extreme difficulty or unable groceries from the floor to perform activity h. Performing light activities around Moderate difficulty your home i. Performing heavy activities around Quite a bit of difficulty your home j. Getting into or out of a car A little bit of difficulty k. Walking 2 blocks Moderate difficulty l. Walking a mile Extreme difficulty or unable to perform activity m. Going up or down 10 stairs (about 1 Extreme difficulty or unable flight of stairs) to perform activity n. Standing for 1 hour Quite a bit of difficulty o. Sitting for 1 hour Moderate difficulty p. Running on even ground Extreme difficulty or unable to perform activity q. Running on uneven ground Extreme difficulty or unable to perform activity r. Making sharp turns while running fast Extreme difficulty or unable to perform activity s. Hopping Extreme difficulty or unable to perform activity t. Rolling over in bed Moderate difficulty LEFI Score Lower Extremity Functional Index Score 19 Rehab Re-assessment Subjective Subjective Pt reports 0-1/10 left hip/LE pain on VAS this am, 'really the inside (medial aspect left thigh) is the only sore spot right now.' Pt reports continued improvement in functional endurance w/walking and standing in and around the house, and reports successful transition from to [place], 'and I'm leaving my cane in rooms at the house and forgetting where I left it.' Objective Objective Notes LEF INDEX 19 VS 11 ON I EVAL MMT: LEFT HIP FLX 4--4/5, L HIP ABD 3+/5, L HIP ADD 4/5, L HIP ER 4-/5, L HIP IR 4--4/5, L QUAD 4-4+/5, L HS 4/5, L DF 5/5 PROM: L HIP FLX W/KNEE EXTD 0- 80, L HIP FLX W/KNEE FLXD 0-90 , L HIP IR AND ER 0-15 GAIT: MIN [place] ON LLE ON LEVEL TERRAIN W/SC TTP: LEFT ADD MM 3/4 W/MM GUARDING, LEFT HIP GLUT MED 1- 2, L GRT TRO 1-2/4 Assessment Progress Assessment Progressing as Expected Assessment Notes IMPROVED STRENGTH, ROM, TTP, GAIT, AND ENDURANCE Patient goals met STG'S 11/09 Goals Not Met STG'S 08/09, LTG'S 05/14 Plan Plan Pt to continue w/skilled P.T. to make further improvements in ROM, strength, TTP, and gait to allow for optimal function Frequency of Therapy 1-2x/wk Duration of therapy 6-8wks Time and Billing Re-Eval Time 12 Re-Eval Billing Units 1 PHYSICIAN CERTIFICATION: I certify the specified therapy services for Kath Forbes are required, authorized, and reviewed every 30 days.
== END 2023-12-12 11:10 | disposition home or self-care (01) ==
LOC: PT 10:00
PROVIDERS: Visit Provider Orthopaedic Surgery
DX: M25.552 Pain in left hip (principal); S72.002A Fracture of unspecified part of neck of left femur, initial encounter for closed fracture
CPT/HCPCS: 97010; 97014; 97110; 97116; 97163; 97164; 97530; G0283

== ENCOUNTER 2024-04-05 09:29 | Emergency (ER) | payer OTHER, SELFPAY ==
[2024-04-05] VITALS (10 sets, daily range): BP systolic 109–128; BP diastolic 63–74; PULSE 65–88; RESP 16–18; TEMP 36.8; O2SAT 96–98; BMI 22.3
[2024-04-05 09:45] LABS: Coronavirus 19, PCR Not Detected (NotDetected); Influenza A, PCR Not Detected (NotDetected); Influenza B, PCR Not Detected (NotDetected)
--- NOTE | 2024-04-05 09:46 | PC.NURSE ---
dr grimes at bedside
--- NOTE | 2024-04-05 09:51 | XR_ITS ---
PROCEDURE INFORMATION: Exam: XR Chest Exam date and time: 04/05/2024 9:55 AM Age: 74 years old Clinical indication: Cough and fever and shortness of breath and other: Congestion, chills; Additional info: Cough, congestion TECHNIQUE: Imaging protocol: Radiologic exam of the chest. Views: 2 views. COMPARISON: CR XR CHEST PORTABLE 09/13/2022 9:48 PM FINDINGS: Lungs: Left lower lobe consolidation, consistent with pneumonia. Pleural spaces: Unremarkable. No pleural effusion. No pneumothorax. Heart/Mediastinum: Unremarkable. No cardiomegaly. Bones/joints: Unremarkable. IMPRESSION: Left lower lobe consolidation, consistent with pneumonia.
--- NOTE | 2024-04-05 10:02 | ED_ITS ---
Discharge Plan Disposition Patient Disposition: Home, Self-Care Condition: Good Prescriptions Prescriptions: New azithromycin 500 mg tablet 500 mg PO DAILY 4 Days Qty: 4 0RF Rx Instructions: You were given your first dose today 04/05/2024, so please start taking this medication at home tomorrow 04/26. ondansetron 4 mg tablet,disintegrating 4 mg PO Q8H PRN (Reason: nausea and vomiting) 4 Days Qty: 12 0RF cefuroxime axetil 500 mg tablet 500 mg PO BID 10 Days Qty: 20 0RF Referrals Follow up/Referrals: Dm Chaparro MD [Primary Care Provider] - See instructions Activity Restrictions/Add. Instructions Additional Instructions/Restrictions: You were evaluated in the emergency department today and was diagnosed with pneumonia and a possible urinary tract infection. It also appears that you are slightly dehydrated, as your sodium is slightly low. Please make sure you stay hydrated at home. 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 I also sent in Zofran for you to have at home as needed for nausea and vomiting. Take Tylenol and ibuprofen at home as needed for pain/fever. Follow-up closely with your primary care provider for reassessment. Return to the emergency department for new or worsening symptoms Clinical Impressions Clinical Impression: Pneumonia, Urinary tract infection, Dehydration, Hyponatremia Stand Alone Forms Stand Alone Forms: Work/School Release Instructions Patient Instructions: DI for Dehydration -- Adult, DI for Pneumonia -- Adult, DI for Urinary Tract Infection (UTI) Print Language Print Language: Slovak Discharge ED Provider: Ana Rosa Faith General Adult HPI General Chief complaint: Upper Respiratory Infection Stated complaint: weakness, cough, congestion Time Seen by Provider: 04/05/24 09:42 Mode of Arrival: Ambulatory Source of Information: Patient Limitations: No Limitations Description of Symptoms (Recalled from ER Triage Doc. by RN): pt presents to the er for chills, nonproductive cough, occasional headache, occasional nausea, congestion, and weakness, denies fever, sore throat, runny nose, states she hasn't felt well since saturday, states headache isn't present at this time History of Present Illness HPI narrative: This patient is a 74-year-old female with a history of vertigo presenting to the emergency department for evaluation with concern for chills, cough, congestion, occasional headache, nausea, poor appetite, and general weakness. She states that this is been going on since Saturday. Currently, she is not experiencing any pain or nausea, but overall she just feels like she does not have any energy. She notes that yesterday, she barely left her recliner and felt almost as if she could not get up on her own. She states the last times on the like this happened she was found to have hepatitis A infection, which was about a year ago. No visual service, numbness, tingling, unilateral weakness, chest pain, shortness of breath, abdominal pain, vomiting, changes in bowel movements, urinary symptoms, rashes, or swelling Related Data Previous Rx's ?Medication ?Instructions ?Recorded azithromycin 500 mg tablet 500 mg PO DAILY 4 days #4 tabs 04/05/24 cefuroxime axetil 500 mg tablet 500 mg PO BID 10 days #20 tabs 04/05/24 ondansetron 4 mg disintegrating 4 mg PO Q8H PRN nausea and 04/05/24 tablet vomiting 4 days #12 tabs Allergies Allergy/AdvReac Type Severity Reaction Status Date / Time No Known Allergies Allergy Verified 04/05/24 09:42 [facility] Disclaimer: The information contained in this section may have been updated after the patient was seen, as this information can be updated by other users. Medical History No significant past medical history Social History Smoking Status: Never smoker alcohol intake: never current occupational status: employed Travel in the last 8 weeks: Inside the [place] Other Medical History Have you received the Flu Vaccine for this season: No Have you received the Pneumonia Vaccine: No ROS Obtained: Yes All systems reviewed & no additional complaints except as documented Physical Exam General General appearance: alert and in no apparent distress Head Head exam: atraumatic and normocephalic Eye Eye exam: Present normal appearance, PERRL and EOMI ENT ENT exam: Present normal exam, normal oropharynx, mucous membranes moist and normal external ear exam Neck Neck exam: Present normal inspection, full ROM and trachea midline; Absent tenderness Chest Chest inspection: Present normal inspection and symmetric chest wall rise; Absent tenderness Respiratory Respiratory exam: Present normal lung sounds bilaterally; Absent respiratory distress, wheezes, stridor or accessory muscle use Cardiovascular Cardiovascular exam: Present regular rate and normal rhythm Abdominal Exam Abdominal exam: Present soft; Absent distention, tenderness, guarding, rebound or rigidity Extremities Exam Extremities exam: Present normal inspection, full ROM and normal capillary refill; Absent tenderness or edema Back Exam Back exam: Present normal inspection and full ROM; Absent tenderness Neurological Exam Neurological exam: Present alert, oriented X3, CN II-XII intact and normal gait; Absent motor sensory deficit Psychiatric Psychiatric exam: Present normal affect and normal mood Skin Skin exam: Present warm and dry Medical Decision Making Medical Records Medical records reviewed: Yes I reviewed the patient's medical records. Screening: Per USPSTF and CDC recommendations, given the prevalence of disease in our region, it is our hospital?s policy to screen for HIV and viral Hepatitis for all patients aged 18 and over and those with ongoing risk factors. Rush Inquiry Pt receiving controlled substance: No Vital Signs: 04/05/24 09:30 04/05/24 09:35 04/05/24 09:56 Temperature 98.2 F Temperature Source Oral Pulse Rate 86 Pulse Rate [Left Radial] 85 Pulse Rate [Orthostatic Lying Right] 77 Pulse Rate [Orthostatic Sitting Right] 75 Pulse Rate [Orthostatic Standing Right] 88 Respiratory Rate 16 16 Blood Pressure 128/64 Blood Pressure [Orthostatic Lying Right Arm] 124/68 Blood Pressure [Orthostatic Sitting Right Arm] 112/63 Blood Pressure [Orthostatic Standing Right Arm] 109/64 L Blood Pressure [Right Arm] 128/64 Blood Pressure Mean 103 Blood Pressure Mean [Right Arm] 85 Blood Pressure Source Blood Pressure Source [Right Arm] Automatic Cuff Blood Pressure Position Blood Pressure Position [Right Arm] Sitting 02 Sat by Pulse Oximetry 97 97 Oxygen Delivery Method Room Air 04/05/24 10:00 04/05/24 10:21 04/05/24 10:22 Temperature Temperature Source Pulse Rate 79 80 65 Pulse Rate [Left Radial] Pulse Rate [Orthostatic Lying Right] Pulse Rate [Orthostatic Sitting Right] Pulse Rate [Orthostatic Standing Right] Respiratory Rate 18 18 18 Blood Pressure 126/72 124/68 112/63 Blood Pressure [Orthostatic Lying Right Arm] Blood Pressure [Orthostatic Sitting Right Arm] Blood Pressure [Orthostatic Standing Right Arm] Blood Pressure [Right Arm] Blood Pressure Mean 90 92 89 Blood Pressure Mean [Right Arm] Blood Pressure Source Blood Pressure Source [Right Arm] Blood Pressure Position Blood Pressure Position [Right Arm] 02 Sat by Pulse Oximetry 97 98 96 Oxygen Delivery Method 04/05/24 10:23 04/05/24 10:30 04/05/24 11:30 Temperature Temperature Source Pulse Rate 79 73 75 Pulse Rate [Left Radial] Pulse Rate [Orthostatic Lying Right] Pulse Rate [Orthostatic Sitting Right] Pulse Rate [Orthostatic Standing Right] Respiratory Rate 16 Blood Pressure 109/64 L 112/64 117/74 Blood Pressure [Orthostatic Lying Right Arm] Blood Pressure [Orthostatic Sitting Right Arm] Blood Pressure [Orthostatic Standing Right Arm] Blood Pressure [Right Arm] Blood Pressure Mean 79 80 87 Blood Pressure Mean [Right Arm] Blood Pressure Source Blood Pressure Source [Right Arm] Blood Pressure Position Blood Pressure Position [Right Arm] 02 Sat by Pulse Oximetry 96 98 98 Oxygen Delivery Method Room Air Room Air 04/05/24 12:09 Temperature 98.3 F Temperature Source Oral Pulse Rate 75 Pulse Rate [Left Radial] Pulse Rate [Orthostatic Lying Right] Pulse Rate [Orthostatic Sitting Right] Pulse Rate [Orthostatic Standing Right] Respiratory Rate 16 Blood Pressure 117/74 Blood Pressure [Orthostatic Lying Right Arm] Blood Pressure [Orthostatic Sitting Right Arm] Blood Pressure [Orthostatic Standing Right Arm] Blood Pressure [Right Arm] Blood Pressure Mean Blood Pressure Mean [Right Arm] Blood Pressure Source Automatic Cuff Blood Pressure Source [Right Arm] Blood Pressure Position Sitting Blood Pressure Position [Right Arm] 02 Sat by Pulse Oximetry Oxygen Delivery Method Room Air Lab Data Lab results reviewed: Yes I reviewed the patient's lab results. Lab Results 04/05/24 09:42: SARS-CoV-2 (PCR) Not detected, Influenza A Untype (PCR) Not detected, Influenza Type B (PCR) Not detected 04/05/24 10:01: WBC 10.2, RBC 4.27, Hgb 12.3, Hct 37.9, MCV 88.7, MCH 28.8, MCHC 32.4, RDW 13.7, Plt Count 244, MPV 9.3, Neut % (Auto) 89.1 H, Lymph % (Auto) 4.3 L, [place] % (Auto) 5.6, Eos % (Auto) 0.6, Baso % (Auto) 0.4, Neut # (Auto) 9.1 H, Lymph # (Auto) 0.4 L, [place] # (Auto) 0.6, Eos # (Auto) 0.1, Baso # (Auto) 0.0, Total Counted 100, Neutrophils % (Manual) 89 H, Lymphocytes % (Manual) 7 L, Monocytes % (Manual) 4, Platelet Estimate Normal, RBC Morphology Normal, PT 11.1, INR 0.99, Sodium 135 L, Potassium 3.5, Chloride 99, Carbon Dioxide 31 H, Anion Gap 8.5, BUN 10, Creatinine 0.70, Estimated Creat Clear 47, Estimated GFR 82, Est GFR ( Amer) 100, Glucose 108 H, Calcium 8.6, Magnesium 2.0, Total Bilirubin 0.8, AST 32, ALT 45, Alkaline Phosphatase 105, Troponin I < 0.01, N T-Pro-B Natriuret Pep 284 H, Total Protein 6.8, Albumin 3.5, Globulin 3.3 H, Albumin/Globulin Ratio 1.1, Lipase 106, TSH 1.22, Thyroxine (T4) 6.4 04/05/24 10:17: Urine Color Yellow, Urine Appearance Clear, Urine pH 6.0, Ur Specific [place] 1.025, Urine Protein 2+ A, Urine Glucose (UA) Negative, Urine Ketones Trace, Urine Blood Negative, Urine Nitrate Positive, Urine Bilirubin 2+ A, Urine Urobilinogen 1.0, Ur Leukocyte Esterase Trace, Urine RBC None, Urine WBC 3-5, Ur Squamous Epith Cells 3-5, Urine Bacteria Trace, Urine Mucus Trace 04/05/24 10:01 04/05/24 10:01 Orders (Tests/Meds): ED MEDICATIONS Discontinued Medications Generic Name Dose Route Start Last Admin Trade Name Lenny PRN Reason Stop Dose Admin Azithromycin 500 mg 04/05/24 11:04/05/24 11:20 Azithromycin 250mg Tablet PO 04/05/24 11:02 500 mg ONCE ONE Administration Cefuroxime Axetil 500 mg 04/05/24 11:04/05/24 11:20 Cefuroxime Axetil 250mg Tablet PO 04/05/24 11:02 500 mg ONCE ONE Administration Ondansetron HCl 4 mg 04/05/24 11:01 04/05/24 11:20 Ondansetron 4mg Odt SL 04/05/24 11:02 4 mg ONCE ONE Administration ORDERS Category Date Time Status CXR 2 view (NOT portable) [XR chest 2V] Stat Exams 04/05/24 09:51 Completed BNP [NT Pro Brain Natriuretic Pep.] Stat Lab 04/05/24 10:01 Completed CBC w/Auto Diff [Complete Blood Count Auto Diff] Stat Lab 04/05/24 10:01 Completed CMP [Comprehensive Metabolic Panel] Stat Lab 04/05/24 10:01 Completed Lipase Stat Lab 04/05/24 10:01 Completed Magnesium Stat Lab 04/05/24 10:01 Completed Prothrombin Time INR Stat Lab 04/05/24 10:01 Completed Rapid PCR Covid and Flu A/B Stat Lab 04/05/24 09:42 Completed T4 (Thyroxine) Stat Lab 04/05/24 10:01 Completed TSH [Thyroid Stimulating Hormone] Stat Lab 04/05/24 10:01 Completed Trop I [Troponin I] Stat Lab 04/05/24 10:01 Completed UA [Urinalysis and Microscopic] Stat Lab 04/05/24 10:17 Completed ECG Data Tracing #1: I reviewed this ECG and interpreted as documented below: Normal sinus rhythm with a ventricular rate of [address] changes concerning for ischemia. Normal axis and intervals. ECG initial impression date: 04/05/24 ECG initial impression time: 10:14 Medical Decision Narrative: In summary, this patient is a 74-year-old female presenting to the Emergency Department for evaluation of chills, cough, congestion, nausea, poor appetite, general weakness for 5 days. Differential diagnoses considered include but are not limited to pneumonia, urinary tract infection, gastroenteritis, dehydration, NORMAN, viral syndrome. Ruling out the most morbid conditions drove assessment. On exam, the patient is sitting upright in bed in no acute distress with reassuring vital signs on cardiac telemetry. Workup included CBC, CMP, lipase, magnesium, troponin, BNP, chest x-ray, EKG, urinalysis. EKG obtained is reassuring. Orthostatic vital signs do demonstrate a mild drop in blood pressure, but not clinically significant. Patient did not become symptomatic. I independently interpreted x-ray prior to the radiologist read and noted concern for left sided pneumonia. Please see their read for final interpretation. Labs were obtained that demonstrated mild neutrophilic predominance and white count, very mild hyponatremia. Otherwise, labs are reassuring. Ultimately, feel the patient has very mild dehydration with her mild hyponatremia and slight drop in blood pressure when going from sitting to standing. She was able to tolerate oral rehydration here. Urine is possibly concerning for infection, culture sent and pending. It is slightly contaminated with squamous cells. She does, however, have pneumonia. Will treat with antibiotic that would cover both UTIs and pneumonia, cefuroxime. Will also treat with azithromycin to cover atypicals given greater than 65. For her nausea, and prescribing her Zofran. She is resting calmly on multiple reassessments with no increased work of breathing and no hypoxia. Ultimately, given that she is tolerating oral intake and has reassuring workup otherwise, I feel that she department for discharge home with antibiotics to treat pneumonia and Zofran. Strict return precautions were given as well as instructions for close follow-up with PCP. Critical Care Critical Care Time Critical Care Time: No
[2024-04-05 10:10] LABS: Basophils % 0.4 % (0.1-2.0); Eosinophils # 0.1 K/mm3 (0.0-0.4); Eosinophils % 0.6 % (0.1-12.0); Hematocrit 37.9 % (37.0-47.0); Hemoglobin 12.3 g/dL (12.2-16.2); Lymphocytes # 0.4 K/mm3 (0.7-4.5); Lymphocytes % 4.3 % (10-50); Mean Corpuscular HGB Conc 32.4 g/dL (31.8-35.4); Mean Corpuscular Hemoglobin 28.8 pg (27.0-31.2); Mean Corpuscular Volume 88.7 fl (81-99); Mean Platelet Volume 9.3 fl (7.4-10.4); Monocytes # 0.6 K/mm3 (0.1-1.0); Monocytes % 5.6 % (1.7-9.3); Neutrophils # 9.1 K/mm3 (1.8-7.8); Neutrophils % 89.1 % (37.0-80.0); Platelet Count 244 K/mm3 (142-424); Red Blood Count 4.27 M/mm3 (4.20-5.40); Red Cell Distribution Width 13.7 % (11.5-17.5); White Blood Count 10.2 K/mm3 (4.8-10.8)
[2024-04-05 10:13] LABS: MANUAL DIFFERENTIAL MANUAL DIFFERENTIAL (MANUAL DIFF)
--- NOTE | 2024-04-05 10:13 | ECG_ITS ---
APPROVED REPORT Exam: Resting ECG HR:77 bpm ECG Measurements Heart Rate 77 AXES CA 131 P 60 QRSd 80 QRS 76 QT 350 T 60 QTc 381 Conclusion SINUS RHYTHM POSSIBLE LEFT ATRIAL ENLARGEMENT [-0.1mV P-WAVE IN V1/V2] POSSIBLE RIGHT VENTRICULAR CONDUCTION DELAY [RSR (QR) IN V1/V2] POSSIBLE LEFT VENTRICULAR HYPERTROPHY [VOLTAGE CRITERIA PLUS LAE OR QRS WIDENING] ABNORMAL ECG Electronically signed by : MABEL WALSH, 04/05/2024 15:49:41
[2024-04-05 10:20] LABS: Alanine Aminotransferase 45 U/L (12-78); Albumin Level 3.5 g/dl (3.5-5.0); Albumin/Globulin Ratio 1.1 (1.1-1.8); Alkaline Phosphatase 105 U/L (38-126); Anion Gap 8.5 mEq/L (5-15); Aspartate Amino Transferase 32 U/L (14-36); Bilirubin,Total 0.8 mg/dl (0.2-1.3); Blood Urea Nitrogen 10 mg/dl (7-17); Calcium 8.6 mg/dl (8.4-10.2); Carbon Dioxide 31 mmol/L (22.0-30.0); Chloride 99 mmol/L (98-107); Creatinine Clearance Estimated 47 mL/min (50-200); Estimated Glomerular Filt Rate 82 ml/min (>60); GFR (African American) 100 ML/MIN (>60); Globulin 3.3 g/dL (1.3-3.2); Glucose 108 mg/dl (74-100); Lipase 106 U/L (23-300); Potassium 3.5 mmoL/L (3.5-5.1); Sodium 135 mmol/L (136-145); Total Protein,Serum 6.8 g/dl (6.3-8.2)
[2024-04-05 10:22] LABS: INR 0.99 (0.9-1.1); Prothrombin Time 11.1 seconds (10.1-12.5)
[2024-04-05 10:23] LABS: Microscopic, Urine URINE MICROSCOPIC (MICROSCOPIC)
[2024-04-05 10:26] LABS: Appearance,Urine CLEAR (Clear); Blood, Urine Negative (Negative); Color,Urine YELLOW (Yellow); Glucose,Urine (UA) Negative (Negative); Ketones,Urine TRACE (Negative); Leukocyte Esterase,Urine TRACE (Negative); Nitrate,Urine POSITIVE (Negative); Protein,Urine 2+ (Negative); Specific Gravity, Urine 1.025 (1.005-1.030)
[2024-04-05 10:27] LABS: Lymphocytes % 7 % (10-50); Monocytes % 4 % (2-9); Neutrophils % 89 % (42-76); Total Cells Counted 100
[2024-04-05 10:28] LABS: Platelet Estimate Normal; RBC Morphology Normal
[2024-04-05 10:31] LABS: Bilirubin,Urine 2+ (Negative)
[2024-04-05 10:32] LABS: NT Pro Brain Natriuretic Pep. 284 pg/mL (0-125)
[2024-04-05 10:32] LABS: Bacteria,Urine Trace /lpf; Mucus,Urine Trace /lpf
[2024-04-05 10:33] LABS: Troponin I < 0.01 ng/ml (0.00-0.034)
[2024-04-05 10:37] LABS: T4 (Thyroxine) 6.4 ug/dl (5.53-11.0)
[2024-04-05 10:51] LABS: Thyroid Stimulating Hormone 1.22 uIU/mL (0.465-4.68)
[2024-04-05] MEDS: cefUROXime AXETIL 250MG TABLET 500 MG PO (11:20)
[2024-04-05] MEDS: AZITHROMYCIN 250MG TABLET 500 MG PO (11:20)
[2024-04-05] MEDS: ONDANSETRON 4MG ODT 4 MG SL (11:20)
== END 2024-04-05 12:10 | disposition home or self-care (01) ==
PROVIDERS: Emergency Provider Emergency Medicine; PCP Family Medicine
DX: J18.9 Pneumonia, unspecified organism (principal); E87.1 Hypo-osmolality and hyponatremia; E86.0 Dehydration; N39.0 Urinary tract infection, site not specified
CPT/HCPCS: 71046; 80050; 80053; 81001; 83690; 83735; 83880; 84436; 84443; 84484; 85007; 85025; 85610; 87636; 93005; 99285; Q0162

== ENCOUNTER 2024-04-16 10:02 | Outpatient (CLI) | payer OTHER, SELFPAY ==
--- NOTE | 2024-04-16 10:06 | XR_ITS ---
PROCEDURE INFORMATION: Exam: XR Chest Exam date and time: 04/16/2024 10:21 AM Age: 74 years old Clinical indication: Shortness of breath; Additional info: Pneumonia caused by an unspecified organism TECHNIQUE: Imaging protocol: Radiologic exam of the chest. Views: 2 views. COMPARISON: CR Chest 04/05/2024 9:55 AM FINDINGS: Lungs: There is re-demonstration of dense confluent consolidation left lingula slightly improved from previous exam. Findings may be related to residual pneumonia and atelectasis but needs continued follow-up to exclude underlying lung mass. Remaining lung salcido are clear. Pleural spaces: Unremarkable. No pleural effusion. No pneumothorax. Heart/Mediastinum: Unremarkable. No cardiomegaly. Bones/joints: No acute bony abnormalities detected. IMPRESSION: Slight improvement of dense confluent consolidation left lingula possibly infectious in nature. Continued follow-up or CT chest recommended for further assessment..
== END 2024-04-16 23:59 | disposition home or self-care (01) ==
LOC: RAD 10:03
PROVIDERS: PCP Family Medicine; Visit Provider Family Medicine
DX: J18.9 Pneumonia, unspecified organism (principal)
CPT/HCPCS: 71046

== ENCOUNTER 2024-05-05 09:31 | Outpatient (CLI) | payer OTHER, SELFPAY ==
--- NOTE | 2024-05-05 09:39 | XR_ITS ---
FINAL REPORT CLINICAL HISTORY: f/u PNEUMONIA COMPARISON: 04/16/2024 FINDINGS: Two views of the chest were obtained. The heart size and pulmonary vascularity are within normal limits. The mediastinum is normal. There are persistent but partially improved lingular opacities, consistent with improving pneumonia. There is no pneumothorax. The bony thorax is intact. IMPRESSION: Persistent but partially improved pulmonary opacities in the lingula, consistent with improving pneumonia. Reviewed, Interpreted and Dictated by Bart Meza III, MD Transcribed by Alyssa Rodriguez Authenticated and [facility]
== END 2024-05-05 23:59 | disposition home or self-care (01) ==
LOC: RAD 09:33
PROVIDERS: PCP Family Medicine; Visit Provider Family Medicine
DX: J18.9 Pneumonia, unspecified organism (principal)
CPT/HCPCS: 71046

== ENCOUNTER 2024-09-29 17:00 | Outpatient (RCR) | payer OTHER, SELFPAY ==
--- NOTE | 2024-09-01 18:30 | HMH.PTOPEV ---
PT Outpatient Evaluation Rehab PT Outpatient Evaluation Start: 09/01/24 15:56 Freq: Status: Active Protocol: Document 09/01/24 15:56 FUENTES (Rec: 09/01/24 18:30 FUENTES [id number]) E-signed By Ana Rosa Ann, PT Outpatient Therapy Subjective History Subjective History Pt is a 74 y/o female who reports residual weakness and altered balance following L posterior JOSETTE performed on . Pt denies complications following surgery. Pt states she had a total hip replacement following a L femoral neck fracture. Pt states she had physical therapy following her surgery with noted improvement; however, reports continued weakness of the LLE and altered balance. Pt denies LLE pain or paresthesia. Pt states she feels that she is unable to walk in a straight line and feels fearful with traversing steps especially without a handrail. Pt also reports fear and difficulty with walking in the dark and on uneven terrain. Pt denies required use of an AD for balance. Pt reports 1 fall this year ~2 months ago due to her foot getting caught on a strap causing her to fall and land on her R knee. Pt reports R knee swelling after the fall, denies serious injuries. Pt denies further comorbidities to report. Medical History: Vertigo New diagnosis of cancer in past 12 No months? Chief Complaint Weakness Current Functional Limitations Squatting,Walking,Stairs, Balance Hip/Knee Eval Gait Observation General Gait Pattern Observation Antalgic Gait,Decrease Weight Bear (L) Assistive Device Assistive Devices None / NA MMT left Hip Flexion Strength Grade 4- Good- Hip Abduction Strength Grade 4- Good- Hip Adduction Strength Grade 4- Good- Hip Extension Strength Grade 4- Good- Knee Extension Strength Grade 5 Normal Knee Flexion Strength Grade 4 Good ROM Hip Flexion w/Knee Flexed Active Range 115 of Motion (degrees) Hip Abduction Active Range of Motion ( 45 degrees) Knee Extension Active Range of Motion ( 0 degrees) Knee Flexion Active Range of Motion ( 125 degrees) Balance Eval Rhomberg Feet Together/Eyes open/Stable Surface pass Feet Together/Eyes Closed/Stable Surface pass Feet Together/Eyes open/Unstable Surface pass Feet Together/Eyes Closed/Unstable fail Surface Lower Extremity Functional Index Activities Today, do you or would you have any difficulty at all with: a.Any of your usual work, housework or A little bit of difficulty school activities b. Your usual hobbies, recreational or Moderate difficulty sporting activities c. Getting into or out of the bath No difficulty d. Walking between rooms No difficulty e. Putting on your shoes or socks No difficulty f. Squatting A little bit of difficulty g. Lifting an object, like a bag of A little bit of difficulty groceries from the floor h. Performing light activities around No difficulty your home i. Performing heavy activities around A little bit of difficulty your home j. Getting into or out of a car A little bit of difficulty k. Walking 2 blocks A little bit of difficulty l. Walking a mile Moderate difficulty m. Going up or down 10 stairs (about 1 Moderate difficulty flight of stairs) n. Standing for 1 hour A little bit of difficulty o. Sitting for 1 hour No difficulty p. Running on even ground Quite a bit of difficulty q. Running on uneven ground Quite a bit of difficulty r. Making sharp turns while running fast Extreme difficulty or unable to perform activity s. Hopping Extreme difficulty or unable to perform activity t. Rolling over in bed A little bit of difficulty LEFI Score Lower Extremity Functional Index Score 52 Outpatient Therapy Assessment Impairments Problems/Impairmments Impaired Range of Motion, Impaired Strength,Impaired Gait Pattern,Impaired Walking, Impaired Stair Climbing, Impaired Incline Stepping, Impaired Stepping on Uneven Surface,Impaired Squatting, Impaired Balance,Impaired Self Care/Self Management Prognosis Rehab Potential Good Clinical Impression Consistent with Diagnosis Yes Short Term Goals Number of Weeks 2 Improve Self Care/Self Management Yes Patient to be Ind w/ HEP Yes [facility] Goals Number of Weeks 6 Increase Strength Yes: Improve LLE MMT to 4-4+/5 grossly to assist with function Improve Gait Pattern without Assistive Yes: improved gait mechanics Device to decrease fall risk Improve Ability to Climb Stairs Yes: traverse 3-4 steps without HR to assist with safe community navigation Improve Balance Yes: FT EC unstable surface 30 without LOB to decrease fall risk Improve LEFI Score Yes: Improve score to 62/80 to improve overall QOL Patient to be Ind w/ Advanced HEP Yes Outpatient Therapy Plan of Care Treatment Plan May Include Therapeutic Exercise Including Home Yes Exercise Program Manual Therapy Techniques Yes Neuromuscular Re-education Yes Therapeutic Activities to Return to Yes Previous Functional/Work Level Gait Training Yes ADL/Self Care Education Yes Thermal Modalities Yes Electrical Stimulation Yes Ultrasound/Phonophoresis Yes Iontophoresis Yes Vasopneumatic Compression Pump Yes Massage Yes Eval/Re-Eval Yes Frequency Times per week 2 Duration Number of Weeks 4-6 Addendums This patient is a candidate for social No or vocational rehab? Patient/Guardian verbally acknowledges Yes understanding of treatment program and consents to further treatment? Patient/Guardian verbally acknowledges Yes understanding of diagnosis, prognosis and goals for treatment? Eval Complexity PT Charges 38015 - Low Complexity Shoulder/Elbow Eval Shoulder Objective Measurements Elbow Objective Measurements PHYSICIAN CERTIFICATION: I certify the specified therapy services for Kath Forbes are required, authorized, and reviewed every 30 days.
--- NOTE | 2024-09-29 18:08 | HMH.RHREAS ---
Rehab Reassessment Rehab OP Re-assessment Start: 09/01/24 15:56 Freq: Status: Active Protocol: Document 09/29/24 17:00 FUENTES (Rec: 09/29/24 18:08 FUENTES [id number]) E-signed By Ana Rosa Ann PT Lower Extremity Functional Index Activities Today, do you or would you have any difficulty at all with: a.Any of your usual work, housework or No difficulty school activities b. Your usual hobbies, recreational or Moderate difficulty sporting activities c. Getting into or out of the bath No difficulty d. Walking between rooms No difficulty e. Putting on your shoes or socks No difficulty f. Squatting A little bit of difficulty g. Lifting an object, like a bag of Moderate difficulty groceries from the floor h. Performing light activities around Moderate difficulty your home i. Performing heavy activities around Moderate difficulty your home j. Getting into or out of a car No difficulty k. Walking 2 blocks A little bit of difficulty l. Walking a mile Moderate difficulty m. Going up or down 10 stairs (about 1 Moderate difficulty flight of stairs) n. Standing for 1 hour Quite a bit of difficulty o. Sitting for 1 hour Quite a bit of difficulty p. Running on even ground Extreme difficulty or unable to perform activity q. Running on uneven ground Extreme difficulty or unable to perform activity r. Making sharp turns while running fast Extreme difficulty or unable to perform activity s. Hopping Extreme difficulty or unable to perform activity t. Rolling over in bed A little bit of difficulty LEFI Score Lower Extremity Functional Index Score 43 Rehab Re-assessment Subjective Subjective Pt reports she feels 35% improved since starting PT. Pt reports her LLE feels stronger overall. Pt continues to deny LLE pain. Pt reports she continues to be cautious and guarded with walking on uneven ground and stair climbing. Objective Objective Notes Balance: FT EC unstable surface <20 with posterior LOB noted LLE MMT: hip 4/5 grossly, knee flex/ext 4+/5 Assessment Assessment Notes Pt has attended 7 PT treatment sessions consisting of aerobic exercise, LE strengthening, balance/ proprioception training and HEP with good tolerance. Pt demonstrated slight improvement in LLE strength this date compared to the initial evaluation. Pt continues to report altered balance on uneven terrain and stair climbing without UE support. Overall, the pt would continue to benefit from skilled PT to further improve LLE strength, balance/ proprioception and functional activity tolerance to improve overall QOL. Patient goals met ST/ LT/6 Goals Not Met strength, stair climbing, balance, LEFS score, adv HEP Revised Goals n/a Plan Plan Continue POC Frequency of Therapy 2x/week Duration of therapy 4 more weeks Time and Billing Re-Eval Time 10 Re-Eval Billing Units 0 Charge for PT reassessment? No Charge for OT reassessment? No PHYSICIAN CERTIFICATION: I certify the specified therapy services for Kathmarietta Forbes are required, authorized, and reviewed every 30 days.
== END 2024-09-29 23:59 | disposition home or self-care (01) ==
LOC: PT 17:00
PROVIDERS: PCP Family Medicine; Visit Provider Orthopaedic Surgery
DX: S72.002A Fracture of unspecified part of neck of left femur, initial encounter for closed fracture (principal)
CPT/HCPCS: 97110; 97112; 97163

== ENCOUNTER 2024-10-29 16:00 | Outpatient (RCR) | payer OTHER, SELFPAY ==
--- NOTE | 2024-10-29 17:32 | HMH.RHREAS ---
Rehab Reassessment Rehab OP Re-assessment Start: 10/01/24 16:46 Freq: Status: Active Protocol: Document 10/29/24 17:08 FUENTES (Rec: 10/29/24 17:31 FUENTES [id number]) E-signed By Ana Rosa Ann PT Lower Extremity Functional Index Activities Today, do you or would you have any difficulty at all with: a.Any of your usual No difficulty work, housework or school activities b. Your usual A little bit of difficulty hobbies, recreational or sporting activities c. Getting into or No difficulty out of the bath d. Walking between No difficulty rooms e. Putting on your No difficulty shoes or socks f. Squatting A little bit of difficulty g. Lifting an object A little bit of difficulty , like a bag of groceries from the floor h. Performing light A little bit of difficulty activities around your home i. Performing heavy A little bit of difficulty activities around your home j. Getting into or No difficulty out of a car k. Walking 2 blocks A little bit of difficulty l. Walking a mile Moderate difficulty m. Going up or down Moderate difficulty 10 stairs (about 1 flight of stairs) n. Standing for 1 A little bit of difficulty hour o. Sitting for 1 A little bit of difficulty hour p. Running on even Quite a bit of difficulty ground q. Running on uneven Extreme difficulty or unable to perform activity ground r. Making sharp Extreme difficulty or unable to perform activity turns while running fast s. Hopping Extreme difficulty or unable to perform activity t. Rolling over in A little bit of difficulty bed LEFI Score Lower Extremity 52 Functional Index Score Rehab Re-assessment Subjective Subjective Pt reports she feels 60% improved since starting PT. Pt reports she feels that she continues to get stronger and has noticed a small improvement in her balance. Pt states she has been trying to go up stairs without holding on but is very cautious, states she uses a step to pattern. Pt states she feels that she is not strong enough to go up stairs reciprocally and maintain her balance. Pt reports she continues to be very cautious and guarded when walking on uneven terrain as well. Objective Objective Notes Gait: slightly antalgic with decreased WB on LLE Stair climbing: step to pattern reaching for HR requiring cueing to correct, able to descend 3 steps reciprocally without HR towards the bottom of the flight of stairs after maximal encouragement and reassurance - unable to ascend 3 steps without touching HR despite encouragement and reassurance Balance: FT EC unstable surface 20 with moderate sway, PT assist to maintain upright balance - pt states increased anxiety with EC balance activities making her feel sick to her stomach LLE MMT: hip 4/5 grossly, knee flex/ext 4+/5 Assessment Progress Assessment Slower Than Expected Assessment Notes Pt has attended 12 PT treatment sessions consisting of aerobic exercise, LE strengthening and balance/ proprioception training. Pt demonstrated improvement in LEFS score compared to the previous reassessment but no change since the initial evaluation. Pt demonstrates fear avoidance behavior with balance activities and stair climbing delaying overall progress. Pt requires maximal encouragement and cueing to not reach for upper extremity support during balance activities and stair climbing in the clinic. Overall, the pt would continue to benefit from skilled PT to improve LE strength and to assist with performance/confidence with balance/ proprioception activities, gait, stair climbing and functional activities to decrease fall risk and improve overall QOL. Patient goals met LT/6 Goals Not Met gait, stairs, balance, LEFS, HEP Revised Goals n/a Plan Plan Continue POC Frequency of Therapy 2x/week Duration of therapy 2-4 more weeks Time and Billing Re-Eval Time 14 Re-Eval Billing 0 Units Charge for PT No reassessment? Charge for OT No reassessment? PHYSICIAN CERTIFICATION: I certify the specified therapy services for Kath Forbes are required, authorized, and reviewed every 30 days.
== END 2024-10-29 23:59 | disposition home or self-care (01) ==
LOC: PT 16:00
PROVIDERS: PCP Family Medicine; Visit Provider Orthopaedic Surgery
DX: S72.002A Fracture of unspecified part of neck of left femur, initial encounter for closed fracture (principal)
CPT/HCPCS: 97110; 97112; 97530

== ENCOUNTER 2024-11-09 11:39 | Emergency (ER) | payer OTHER, SELFPAY ==
--- OUTSIDE RECORDS SUMMARY | 2024-04-09 07:30 | XMS_ITS ---
Author Organization [facility] Address 1210 [facility] 36 [facility] [address] [place] [id number] Care Team Providers Care Transactional Attorney Name Role Phone Amie Chaparro Primary Care Provider Quinton German Unavailable [phone] Allergies No Known Allergies Results Component Value [...] 500 MG 1 tablet Orally every 12 hrs for 5 day(s) Active Ondansetron HCl 4 MG 1 tablet Orally Onc e a day for 30 day(s) Active Vital Signs Blood pressure systolic 122 mm Hg 04/09/20 24 Blood pressure diastolic 70 mm Hg 024 Heart Rate 76 /min 04/09/2024 Height 64 in 04/09/2024 Weight 126.4 lbs 04/09/2024 BMI 21.69 kg/m2 04/09/2024 Encounters Encounter Location Date Provider Diagnosis [facility] 36 [facility] [address] [place] [id number] 04/09/2024 Amie Chaparro Pneumonia J18 .9 Assessments [...] test results, Reason: Progress Notes * KATH HASSANDOB:1950 ([age] yo F)Acc No.[id number]:04/09/2024 Progress Notes Patient: KATH VILLANUEVA Provider: Amie Chaparro M.D. :1950 A ge:74 Y S ex:Female Date:04/09/2024 Address:[address] [place] [address], [id number] Subjective: * Chief Complaints: * 1 . [place] . * HPI: E NT/respiratory: Kath was [...] Past smoking status: no. * Medications: T camillag Ondansetron HCl 4 MG Tablet 1 tablet [...] NT/Respiratory: General Appearance: N o respiratory distress. Eyes: P ERRLA, sclera clear. Ears: a uditory canals normal bilaterally, TM's WNL. Nose : n ormal, no lesions, nares patent. Oral cavity : n o erythema or exudate seen on pharynx. Neck : n o cervical lymphadenopathy. Heart : R RR, normal S1 S2, no murmurs. Lungs: D iminished breath sounds in left base compared to right. No rales or wheezes.. Assessment: * Assessment: 1. Nicol lowery - J18.9 (Primary) Plan: * Treatment: Notes: She has completed her course of Zithromax and continues on Ceftin. Plan to repeat chest x-ray in 10 to 14 days?? * Procedure Codes: 9 4760 PULSE OX * Follow Up: v ia phone to report test results * Billing Information: * Visit Code: 91322 Office Visit, Est Pt., Level 3. * Procedure Codes: 98039 PULSE OX. * Electronic signature of Amie Chaparro MD on 11/09/2024 at 11:53 AM EDT Sign off status: Pending * Provider: Amie Chaparro M.D. Date: 06/09/2023 Generated for Imelda vides/Marimar/eTrashaadsmitting on: 0 11/09/2024 11:53 AM EDT History and Physical Notes * Examination Category [...]
[2024-11-09] VITALS (9 sets, daily range): BP systolic 80–136; BP diastolic 36–69; PULSE 62–97; RESP 16–32; TEMP 36.3–36.6; O2SAT 71–100; BMI 20.9
--- NOTE | 2024-11-09 11:42 | HMH.EDGENADL ---
Discharge Plan Disposition Patient Disposition: Home, Self-Care Condition: Good Prescriptions Prescriptions: New ondansetron 4 mg tablet,disintegrating 4 mg PO Q8H PRN (Reason: nausea and vomiting) 5 Days Qty: 10 0RF No Action azithromycin 500 mg tablet 500 mg PO DAILY 4 Days Qty: 4 0RF Rx Instructions: You were given your first dose today 04/05/2024, so please start taking this medication at home tomorrow 04/26. ondansetron 4 mg tablet,disintegrating 4 mg PO Q8H PRN (Reason: nausea and vomiting) 4 Days Qty: 12 0RF cefuroxime axetil 500 mg tablet 500 mg PO BID 10 Days Qty: 20 0RF Referrals Follow up/Referrals: Dm Chaparro MD [Primary Care Provider, Medical] - See instructions Activity Restrictions/Add. Instructions Additional Instructions/Restrictions: I have prescribed Zofran which you received today in the emergency department which helped your symptoms. As we discussed, your creatinine was slightly elevated from your baseline which appears suggestive of some mild dehydration. Your EKG and heart enzyme level were reassuring, in combination with the symptoms you are experiencing. Given that your symptoms are improving and you have been able to walk to the bathroom without any further symptoms, after shared decision making you are stable for discharge at this time. Please return with any new or worsening symptoms. Please make sure you are staying hydrated and having multiple small meals throughout the day Clinical Impressions Clinical Impression: Nausea, Hypovolemia Print Language Print Language: Ukrainian Discharge ED Provider: Mg Ruiz General Adult HPI General Chief complaint: Weakness Stated complaint: Weak, Nausea, Light-headed, Low BP Time Seen by Provider: 11/09/24 11:42 History of Present Illness HPI narrative: The patient presents to the Emergency Department with symptoms of a suspected stomach virus that began last night. The patient reports experiencing sweating episodes, near-syncope, and nausea. The patient states that last night she felt she had a stomach virus and became very sweaty during the night. She felt nauseous but did not vomit. When attempting to get out of bed to go to the bathroom, the patient fell but did not lose consciousness. This morning, the patient experienced another episode of sweating about an hour and a half after waking up. During this episode, she again felt the need to use the bathroom but almost passed out. The patient describes feeling very nauseous throughout these episodes. She denies any pain, including abdominal pain or pain while urinating. The patient also denies any blood in their vomit. She reports feeling weak after the sweating episodes and states that she couldn't walk during these times. The patient mentions feeling white in the face during these episodes. The patient reports no recent changes in medications or health status. She ate at [employer] yesterday but did not consume anything out of the ordinary. The patient denies any upper respiratory symptoms such as cough or congestion. No one else at home is reported to be feeling sick. Please note that above description of symptoms, in this electronic medical record under categorization of recalled from ER triage doctor by RN are reflective of an initial nursing assessment, however, is not reflective of my full history and physical exam that was personally taken and clarified. Consequentially, this preceding description of symptoms, which may include the patient's categorized chief complaint in the EMR, do not reflect my personal clinical impression, and the ultimate description of history of present illness and patient stated complaints should be deferred to this section of the note. Unless stated otherwise or congruent with this section of the note, additional signs, symptoms, or incongruence should be interpreted as inaccurate with my clinical impression. Related Data Previous Rx's ?Medication ?Instructions ?Recorded azithromycin 500 mg tablet 500 mg PO DAILY 4 days #4 tabs 04/05/24 cefuroxime axetil 500 mg tablet 500 mg PO BID 10 days #20 tabs 04/05/24 ondansetron 4 mg disintegrating 4 mg PO Q8H PRN nausea and 04/05/24 tablet vomiting 4 days #12 tabs ondansetron 4 mg disintegrating 4 mg PO Q8H PRN nausea and 11/09/24 tablet vomiting 5 days #10 tabs Allergies Allergy/AdvReac Type Severity Reaction Status Date / Time No Known Allergies Allergy Verified 04/05/24 09:42 [facility] Disclaimer: The information contained in this section may have been updated after the patient was seen, as this information can be updated by other users. Medical History No significant past medical history Social History Smoking Status: Never smoker alcohol intake: never current occupational status: employed Travel in the last 8 weeks?: Inside the [place] Have you lived/traveled outside US in past 30 days?: No Contact w/someone who lives/traveled outside US past 30 days?: No Exposure to someone with infectious disease in past 14 days?: No Do you have a fever (greater than 100.4 F or 38 C)?: No Have you tested positive for COVID-19?: No Exposed to someone with COVID-19 in past 14 days?: No Do you have a sore throat?: No Do you have a cough?: No Do you have any weakness?: Yes Do you have any diarrhea?: No Are you experiencing any unusual bleeding?: No Do you have any muscle aches/pain?: Yes Do you have any abdominal pain?: No Are you experiencing loss of taste or smell?: No Other Medical History Have you received the Flu Vaccine for this season: No Have you received the Pneumonia Vaccine: No ROS Obtained: Yes other As per HPI Physical Exam General General appearance: alert and in no apparent distress Head Head exam: atraumatic and normocephalic Eye Eye exam: Present normal appearance Neck Neck exam: Present normal inspection Chest Chest inspection: Present normal inspection and symmetric chest wall rise Respiratory Respiratory exam: Present normal lung sounds bilaterally; Absent respiratory distress Cardiovascular Cardiovascular exam: Present regular rate and normal rhythm Abdominal Exam Abdominal exam: Present soft Neurological Exam Neurological exam: Present alert and oriented X3 Psychiatric Psychiatric exam: Present normal affect and normal mood Skin Skin exam: Present intact Other Other exam information: Clinically hypovolemic appearing, nontoxic however appears fatigued Medical Decision Making Medical Records Medical records reviewed: Yes I reviewed the patient's medical records. Screening: Per USPSTF and CDC recommendations, given the prevalence of disease in our region, it is our hospital?s policy to screen for HIV and viral Hepatitis for all patients aged 18 and over and those with ongoing risk factors. Rush Inquiry Pt receiving controlled substance: No Vital Signs: 11/09/24 11:47 11/09/24 12:01 11/09/24 12:14 Temperature 97.4 F L 97.8 F Temperature Source Oral Oral Pulse Rate 62 91 H Pulse Rate [Left] 68 Respiratory Rate 18 21 16 Blood Pressure 80/60 L 90/60 L Blood Pressure [Right Arm] 115/69 Blood Pressure Mean [Right Arm] 84 Blood Pressure Source Automatic Cuff Blood Pressure Source [Right Arm] Automatic Cuff 02 Sat by Pulse Oximetry 100 71 L 93 L Oxygen Delivery Method Room Air Room Air 11/09/24 12:30 11/09/24 13:00 11/09/24 13:30 Temperature Temperature Source Pulse Rate 90 94 H 97 H Pulse Rate [Left] Respiratory Rate 30 H 32 H 24 Blood Pressure 120/68 125/36 L 136/68 Blood Pressure [Right Arm] Blood Pressure Mean [Right Arm] Blood Pressure Source Blood Pressure Source [Right Arm] 02 Sat by Pulse Oximetry 100 96 99 Oxygen Delivery Method 11/09/24 14:00 11/09/24 14:30 11/09/24 14:55 Temperature 97.7 F Temperature Source Oral Pulse Rate 91 H 96 H 96 H Pulse Rate [Left] Respiratory Rate 16 22 16 Blood Pressure 118/62 101/61 L 101/61 L Blood Pressure [Right Arm] Blood Pressure Mean [Right Arm] Blood Pressure Source Automatic Cuff Blood Pressure Source [Right Arm] 02 Sat by Pulse Oximetry 94 L 96 Oxygen Delivery Method Room Air Lab Data Lab Results 11/09/24 11:50: WBC 8.8, RBC 4.87, Hgb 14.3, Hct 43.8, MCV 89.9, MCH 29.4, MCHC 32.6, RDW 13.2, Plt Count 211, MPV 12.0 H, Neut % (Auto) 95.2 H, Lymph % (Auto) 2.0 L, [place] % (Auto) 1.4 L, Eos % (Auto) 1.0, Baso % (Auto) 0.2, Neut # (Auto) 8.4 H, Lymph # (Auto) 0.2 L, [place] # (Auto) 0.1, Eos # (Auto) 0.1, Baso # (Auto) 0.0, Total Counted 100, Neutrophils % (Manual) 85 H, Band Neutrophils % 7.0, Lymphocytes % (Manual) 6 L, Monocytes % (Manual) 1 L, Eosinophils % (Manual) 1, Platelet Estimate Normal, RBC Morphology Normal, Sodium 137, Potassium 4.5, Chloride 103, Carbon Dioxide 32 H, Anion Gap 6.5, BUN 21 H, Creatinine 1.10 H, Estimated Creat Clear 40, Estimated GFR 49 L, Est GFR ( Amer) 59, Glucose 140 H, Calcium 9.6, Phosphorus 3.7, Magnesium 1.6, Total Bilirubin 1.5 H, AST 104 H, ALT 66, Alkaline Phosphatase 95, Troponin I < 0.01, Total Protein 7.2, Albumin 4.1, Globulin 3.1, Albumin/Globulin Ratio 1.3 11/09/24 12:40: SARS-CoV-2 (PCR) Not detected, Influenza A Untype (PCR) Not detected, Influenza Type B (PCR) Not detected 11/09/24 13:22: Urine Color Yellow, Urine Appearance Sl cloudy, Urine pH 6.0, Ur Specific [place] 1.025, Urine Protein Trace, Urine Glucose (UA) Negative, Urine Ketones 2+, Urine Blood Negative, Urine Nitrate Negative, Urine Bilirubin 1+ A, Urine Urobilinogen 0.2, Ur Leukocyte Esterase Negative, Urine RBC None, Urine WBC Occasional, Ur Squamous Epith Cells Occasional, Urine Bacteria Trace 11/09/24 11:50 11/09/24 11:50 Orders (Tests/Meds): ED MEDICATIONS Discontinued Medications Generic Name Dose Route Start Last Admin Trade Name Billq PRN Reason Stop Dose Admin Lactated Ringer's 1,000 mls @ 999 mls/hr 11/09/24 12:25 11/09/24 12:35 Lactated Ringer's 1000 Ml Bag IV 11/09/24 13:25 999 mls/hr .Q1H1M ONE Administration Ondansetron HCl 4 mg 11/09/24 12:25 11/09/24 12:35 Ondansetron 4mg/2ml Vial IV 11/09/24 12:26 4 mg ONCE ONE Administration ORDERS Category Date Time Status CBC w/Auto Diff [Complete Blood Count Auto Diff] Stat Lab 11/09/24 11:50 Completed CMP [Comprehensive Metabolic Panel] Stat Lab 11/09/24 11:50 Completed MAG [Magnesium] Stat Lab 11/09/24 11:50 Completed PHOS [Phosphorous] Stat Lab 11/09/24 11:50 Completed Rapid PCR Covid and Flu A/B Stat Lab 11/09/24 12:40 Completed Trop I [Troponin I] Stat Lab 11/09/24 11:50 Completed Urinalysis and Microscopic Stat Lab 11/09/24 13:22 Completed HEART Score History (anamnesis): Slightly suspicious ECG: Normal Age: >65 years Risk factors: No known risk factors Troponin: </= normal limit HEART Score: 2 Medical Decision Narrative: Patient with history and exam per above presenting for evaluation of nausea, lightheadedness, diarrhea Diagnoses considered include enteritis, hypoglycemia, acute kidney injury, orthostatic hypotension, have a low clinical index of suspicion for the symptoms representing atypical angina. Patient denies any shortness of breath or chest pain. She has no preceding history of similar symptoms or CAD although per chart review has presented with hypovolemia and occult infectious illnesses. ED workup and treatment included: ED MEDICATIONS Discontinued Medications Generic Name Dose Route Start Last Admin Trade Name Freq PRN Reason Stop Dose Admin Lactated Ringer's 1,000 mls @ 999 mls/hr 11/09/24 12:25 11/09/24 12:35 Lactated Ringer's 1000 Ml Bag IV 11/09/24 13:25 999 mls/hr .Q1H1M ONE Administration Ondansetron HCl 4 mg 11/09/24 12:25 11/09/24 12:35 Ondansetron 4mg/2ml Vial IV 11/09/24 12:26 4 mg ONCE ONE Administration ORDERS Category Date Time Status CBC w/Auto Diff [Complete Blood Count Auto Diff] Stat Lab 11/09/24 11:50 Completed CMP [Comprehensive Metabolic Panel] Stat Lab 11/09/24 11:50 Completed MAG [Magnesium] Stat Lab 11/09/24 11:50 Completed PHOS [Phosphorous] Stat Lab 11/09/24 11:50 Completed Rapid PCR Covid and Flu A/B Stat Lab 11/09/24 12:40 Completed Trop I [Troponin I] Stat Lab 11/09/24 11:50 Completed Urinalysis and Microscopic Stat Lab 11/09/24 13:22 Completed Labs were independently interpreted by me, significant for no leukocytosis, creatinine 1.10, slightly elevated from baseline of 0.9-1, BUN slightly elevated at 21, no hypoglycemia, urinalysis with trace bacteriuria, leukocyte esterase negative, nitrite negative. COVID and flu testing negative. Patient reports improvement of symptoms upon repeat evaluation after administration of LR as well as Zofran. She appears much more comfortable and well. She was able to ambulate to the bathroom without difficulty. An EKG and troponin were drawn after further discussion with the patient that she expressed some concerns about cardiac cause of her symptoms. Heart score is 2 and after further shared decision making we will not draw second troponin. She was prescribed antiemetic and encouraged to continue to push p.o. hydration as well as protein/calorie intake in the setting of her illness. Clinically she likely has poor reserve in the setting of weight of approximately 121 pounds as well as geriatric age and likely experienced perhaps more GI loss than she realized versus transient hypoglycemia. She is comfortable with discharge at this time strict return precautions. She will follow up with her primary care doctor and return with any new or worsening symptoms. Critical Care Critical Care Time Critical Care Time: No
--- OUTSIDE RECORDS SUMMARY | 2024-11-09 11:53 | XMS_ITS | Patient Health Record ---
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 Role Phone Amie Chaparro Primary Care Provider [phone] Quinton German Unavailable [phone] Allergies No Known Allergies Results Component Value Reference Range Notes CXR Reviewed date:05/15/2024 12:26:20 PM Interpretation:improving pneumonia Performing Lab: Notes/Report: improving pneumonia CXR Reviewed date:04/29/2024 03:48:19 PM Interpretation:slight improvement, continued f/u or CT recommended Performing Lab: Notes/Report: slight improvement, continued f/u or CT recommended Reason For Referral No Information Medications Medication SIG (Take, Route, Frequency, Duration) Notes Start Date End Date Status Meclizine HCl 25 MG 1 tab(s) orally 3 ti mes a day 06/17/2020 Active Cefuroxime Axetil 500 MG 1 tablet Orally every 12 hrs for 5 day(s) Active Ondansetron HCl 4 MG 1 tablet Orally Onc e a day for 30 day(s) Active Immunizations Vaccine Route Administration Date Status Comme nts COVID 19 Moderna Unknown 06/02/2020 Administered COVID 19 Moderna Unknown 07/01/2020 Administered DT, 7 YEARS OR OLDER Unknown 08/09/1996 Administered DT, 7 YEARS OR OLDER IM Intramuscular 10/23/2005 Administe red Tetanus Tdap-Adacel (over 7yrs) IM Intramuscular 11/12/2017 Administered Vital Signs Heart Rate 76 /min 04/09/2024 Blood pressure diastolic 70 mm Hg 04/09/2024 Height 64 in 04/09/2024 Blood pressure systolic 122 mm Hg 04/09/2024 Weight 126.4 lbs 04/09/2024 BMI 21.69 kg/m2 04/09/2024 Encounters Encounter Location Date Provider Diagnosis [facility] [address] [place] [id number] 04/09/2024 R Zach Chaparro Pneumonia J18 .9 [facility] [address] [place] [id number] 04/29/2024 R Zach Chaparro Pneumonia J18 .9 Assessments Encounter Date Diagnosis (ICD Code) Assessment Notes Treatment Notes Treatment Clinical Notes Section Notes 04/09/2024 Pneumonia (ICD-10 - J18.9) She has completed her course of Zithromax and continues on Ceftin. Plan to repeat chest x-ray in 10 to 14 days 04/29/2024 Pneumonia (ICD-10 - J18.9) Plan Of Treatment Pending Test Test Name Order Date H-Monoscreen (rapid) 03/19/2023 Insurance Providers Payer Name Payer Address Payer Phone Subscriber Number Group Number Insured Name Patient Relationship to Insured Coverage Start Date Coverage End Date [facility] [address] [address] [place] [address] [phone] [id number] JAVED HASSAN Self - patient is the insured Medical (General) History Surgical History Surgery Date(Month/Year) btl
[2024-11-09 12:35] LABS: Basophils % 0.2 % (0.1-2.0); Eosinophils # 0.1 Kmm3 (0.0-0.4); Hematocrit 43.8 % (37.0-47.0); Hemoglobin 14.3 g/dL (12.2-16.2); Immature Granulocytes # 0.02 10^3uL; Immature Granulocytes % 0.2 %; Lymphocytes # 0.2 K/mm3 (0.7-4.5); Mean Corpuscular HGB Conc 32.6 g/dL (31.8-35.4); Mean Corpuscular Hemoglobin 29.4 pg (27.0-31.2); Mean Corpuscular Volume 89.9 fl (81-99); Monocytes # 0.1 K/mm3 (0.1-1.0); Monocytes % 1.4 % (1.7-9.3); Neutrophils # 8.4 K/mm3 (1.8-7.8); Neutrophils % 95.2 % (37.0-80.0); Nucleated Red Blood Cells # 0 10^3/uL; Nucleated Red Blood Cells % 0 %; Platelet Count 211 K/mm3 (142-424); Red Blood Count 4.87 M/mm3 (4.20-5.40); Red Cell Distribution Width 13.2 % (11.5-17.5); Red Cell Distribution Width-SD 43.1 fL; White Blood Count 8.8 K/mm3 (4.8-10.8)
[2024-11-09] MEDS: LACTATED RINGERS 1000ML 1,000 ML 999 ML IV (12:35)
[2024-11-09] MEDS: ONDANSETRON 4MG/2ML VIAL 4 MG IV (12:35)
[2024-11-09 12:38] LABS: Albumin Level 4.1 g/dl (3.5-5.0); Chloride 103 mmol/L (98-107)
[2024-11-09 12:39] LABS: MANUAL DIFFERENTIAL MANUAL DIFFERENTIAL (MANUAL DIFF); Potassium 4.5 mmoL/L (3.5-5.1); Sodium 137 mmol/L (136-145)
[2024-11-09 12:41] LABS: Alanine Aminotransferase 66 U/L (12-78); Anion Gap 6.5 mEq/L (5-15); Aspartate Amino Transferase 104 U/L (14-36); Blood Urea Nitrogen 21 mg/dl (7-17); Carbon Dioxide 32 mmol/L (22.0-30.0); Creatinine Clearance Estimated 40 mL/min (50-200); Estimated Glomerular Filt Rate 49 ml/min (>60); GFR (African American) 59 ML/MIN (>60)
[2024-11-09 12:42] LABS: Albumin/Globulin Ratio 1.3 (1.1-1.8); Alkaline Phosphatase 95 U/L (38-126); Bilirubin,Total 1.5 mg/dl (0.2-1.3); Calcium 9.6 mg/dl (8.4-10.2); Globulin 3.1 g/dL (1.3-3.2); Glucose 140 mg/dl (74-100); Magnesium 1.6 mg/dl (1.6-2.3); Phosphorous 3.7 mg/dl (2.5-4.5); Total Protein,Serum 7.2 g/dl (6.3-8.2)
[2024-11-09 12:43] LABS: Coronavirus 19, PCR Not Detected (NotDetected); Influenza A, PCR Not Detected (NotDetected); Influenza B, PCR Not Detected (NotDetected)
[2024-11-09 12:56] LABS: Eosinophils % 1 % (0-3); Lymphocytes % 6 % (10-50); Monocytes % 1 % (2-9); Neutrophils % 85 % (42-76); Platelet Estimate Normal; RBC Morphology Normal; Total Cells Counted 100
[2024-11-09 13:31] LABS: Microscopic, Urine URINE MICROSCOPIC (MICROSCOPIC)
[2024-11-09 13:32] LABS: Appearance,Urine SL CLOUDY (Clear); Blood, Urine Negative (Negative); Color,Urine YELLOW (Yellow); Glucose,Urine (UA) Negative (Negative); Ketones,Urine 2+ (Negative); Leukocyte Esterase,Urine Negative (Negative); Nitrate,Urine Negative (Negative); Protein,Urine TRACE (Negative); Specific Gravity, Urine 1.025 (1.005-1.030); Urobilinogen,Urine 0.2 EU/dl (0.2)
[2024-11-09 13:41] LABS: Bilirubin,Urine 1+ (Negative)
[2024-11-09 13:43] LABS: Bacteria,Urine Trace /lpf; Squamous Epithelial Cell,Urine Occasional #/hpf (0-5); WBC,Urine Occasional #/hpf (0-3)
--- NOTE | 2024-11-09 14:21 | ECG_ITS ---
APPROVED REPORT Exam: Resting ECG HR:95 bpm ECG Measurements Heart Rate 95 AXES NE 129 P 59 QRSd 98 QRS 58 QT 334 T 15 QTc 387 Conclusion SINUS RHYTHM POSSIBLE RIGHT VENTRICULAR CONDUCTION DELAY [RSR (QR) IN V1/V2] NONSPECIFIC ST & T-WAVE ABNORMALITY Electronically signed by : JAMESON MORRISON, 11/10/2024 13:06:01
[2024-11-09 14:34] LABS: Troponin I < 0.01 ng/ml (0.00-0.034)
== END 2024-11-09 15:05 | disposition home or self-care (01) ==
PROVIDERS: Emergency Provider Emergency Medicine; PCP Family Medicine
DX: E86.1 Hypovolemia (principal); R11.0 Nausea; R53.1 Weakness; R42 Dizziness and giddiness
CPT/HCPCS: 80053; 81001; 83735; 84100; 84484; 85007; 85025; 85027; 87636; 93005; 96361; 96374; 99284; J2405; J7120

== ENCOUNTER 2024-11-25 16:00 | Outpatient (RCR) | payer OTHER, SELFPAY | END 2024-11-25 23:59 | disposition home or self-care (01) | LOC: PT 16:00 | PROVIDERS: PCP Family Medicine; Visit Provider Orthopaedic Surgery | DX: S72.002A Fracture of unspecified part of neck of left femur, initial encounter for closed fracture (principal) | CPT/HCPCS: 97110; 97112; 97530 ==

== ENCOUNTER 2025-03-19 05:14 | Emergency (ER) | payer OTHER, SELFPAY ==
--- OUTSIDE RECORDS SUMMARY | 2024-04-09 07:30 | XMS_ITS ---
Author Organization [facility] Address [address] [facility] [address] [place] [id number] Care Team Providers Care Plant Production Manager Name Role Phone Amie Chaparro Primary Care Provider [phone] Quinton German Unavailable [phone] Allergies No Known Allergies Results Component Value [...] day; Duration: 30 day(s) Active Vital Signs Blood pressure systolic 122 mm Hg 04/09/20 24 Blood pressure diastolic 70 mm Hg 024 Heart Rate 76 /min 04/09/2024 Height 64 in 04/09/2024 Weight 126.4 lbs 04/09/2024 BMI 21.69 kg/m2 04/09/2024 Encounters Encounter Location Date Provider Diagnosis [facility] [address] [place] [address] [facility] [address] [place] [phone] 04/09/2024 Amie Chaparro Pneumonia J18 .9 Assessments [...] Reason: Progress Notes * KATH HASSANDOB:1950 ([age] yo F)Acc No.[id number]:04/09/2024 Progress Notes Patient: KATH VILLANUEVA Provider: Amie Chaparro M.D. :1950 A ge:74 Y S ex:Female Date:04/09/2024 Address:[address] [place] [address], [id number] Subjective: * Chief Complaints: * 1 . [place] . * HPI: E NT/respiratory: Kath was [...] * Images: Billing Information: * Visit Code: 01248 Office Visit, Est Pt., Level 3. * Procedure Codes: 09001 PULSE OX. * Electronic signature of Amie Chaparro MD on 03/19/2025 at 05:23 AM EDT Sign off status: Pending * Provider: Amie Chaparro M.D. Date: 06/09/2023 Generated for Imelda vides/Marimar/Josephine on: 05:23 AM EDT History and Physical Notes * [...]
[2025-03-19] VITALS (12 sets, daily range): BP systolic 102–139; BP diastolic 54–78; PULSE 64–75; RESP 14–19; TEMP 36.9–37.2; O2SAT 93–100; BMI 20.5
--- NOTE | 2025-03-19 05:20 | ECG_ITS ---
APPROVED REPORT Exam: Resting ECG HR:73 bpm ECG Measurements Heart Rate [address] 137 P 75 QRSd 77 QRS 75 QT 370 T 53 QTc 396 Conclusion SINUS RHYTHM NORMAL ECG Electronically signed by : RUSTAM BAXTER, 03/20/2025 06:57:34
--- OUTSIDE RECORDS SUMMARY | 2025-03-19 05:23 | XMS_ITS | Patient Health Record ---
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 Name Role Phone Amie Chaparro Primary Care Provider Quinton German Unavailable [phone] Allergies No Known Allergies Results Component Value [...] e a day; Duration: 30 day(s) Active Immunizations Vaccine Route Administration Date Status Comme nts Tetanus Tdap-Adacel (over 7yrs) IM Intramuscular 11/12/2017 Administered DT, 7 YEARS OR OLDER Unknown 08/09/1996 Administered DT, 7 YEARS OR OLDER IM Intramuscular 10/23/2005 Administe red COVID 19 Moderna Unknown 06/02/2020 Administered COVID 19 Moderna Unknown 07/01/2020 Administered Vital Signs Heart Rate 76 /min 04/09/2024 Blood pressure diastolic 70 mm Hg 04/09/2024 Height 64 in 04/09/2024 Blood pressure systolic 122 mm Hg 04/09/2024 Weight 126.4 lbs 04/09/2024 BMI 21.69 kg/m2 04/09/2024 Encounters Encounter Location Date Provider Diagnosis [facility] [address] [place] [id number] 04/09/2024 R Zach Chaparro Pneumonia J18 .9 [facility] [address] [place] [id number] 04/29/2024 R Zach Chaparro Pneumonia J18 .9 [...] Insured Coverage Start Date Coverage End Date [facility] [address] [address] [place] [address] [phone] [id number] JAVED HASSAN Self - patient is the insured Medical (General) History Surgical History Surgery Date(Month/Year) btl
--- NOTE | 2025-03-19 05:30 | CT_ITS ---
PROCEDURE INFORMATION: Exam: CTA Chest With Contrast Exam date and time: 03/19/2025 6:23 AM Age: 75 years old Clinical indication: Pain; Chest pressure; Additional info: Pleuritic pain R lower chest/ruq TECHNIQUE: Imaging protocol: Computed tomographic angiography of the chest with contrast. Exam focused on the arteries. 3D rendering (Not supervised by radiologist): MIP and/or 3D reconstructed images were created by the technologist. Radiation optimization: All CT scans at this facility use at least one of these dose optimization techniques: automated exposure control; mA and/or kV adjustment per patient size (includes targeted exams where dose is matched to clinical indication); or iterative reconstruction. Contrast material: ISOVUE; Contrast volume: 70 ml; Contrast route: INTRAVENOUS (IV); COMPARISON: CR XR CHEST 2V 05/05/2024 9:51 AM FINDINGS: Pulmonary arteries: The main pulmonary artery at the level of the right pulmonary artery measures 2.3 cm. No evidence of acute pulmonary embolism upto the subsegmental level. Aorta: The ascending aorta at the level of the right pulmonary artery measures 2.9 cm. Mild atherosclerotic calcifications affect the aorta. Lungs: Patchy opacities in both lung apices may represent atelectasis, infection, scarring. Patchy and nodular opacities in both lung bases especially the anterior areas likely represent atelectasis or infection. Patchy opacities in the right upper lobe likely represent atelectasis or infection. Pleural spaces: Unremarkable. No pneumothorax. No pleural effusion. Heart: Unremarkable. No cardiomegaly. No pericardial effusion. Lymph nodes: Unremarkable. No enlarged lymph nodes. Bones/joints: Unremarkable. No acute fracture. Soft tissues: Unremarkable. IMPRESSION: 1. No evidence of acute pulmonary embolism upto the subsegmental level. 2. Patchy opacities in both lungs likely represent atelectasis or infection. Follow-up till resolution is recommended.
[2025-03-19 05:51] LABS: Hematocrit 40.5 % (37.0-47.0); Hemoglobin 13.1 g/dL (12.2-16.2); Immature Granulocytes % 0.8 %; Mean Corpuscular HGB Conc 32.3 g/dL (31.8-35.4); Mean Corpuscular Hemoglobin 28.7 pg (27.0-31.2); Mean Corpuscular Volume 88.8 fl (81-99); Nucleated Red Blood Cells % 0 %; Platelet Count 229 K/mm3 (142-424); Red Blood Count 4.56 M/mm3 (4.20-5.40); Red Cell Distribution Width-SD 42.7 fL; White Blood Count 8.6 K/mm3 (4.8-10.8)
[2025-03-19 05:58] LABS: Albumin Level 3.8 g/dl (3.5-5.0); Chloride 101 mmol/L (98-107)
[2025-03-19 05:59] LABS: Potassium 4.4 mmoL/L (3.5-5.1); Sodium 139 mmol/L (136-145)
[2025-03-19 06:00] LABS: Lipase 70 U/L (23-300)
[2025-03-19 06:01] LABS: Alanine Aminotransferase 16 U/L (12-78); Aspartate Amino Transferase 21 U/L (14-36); Blood Urea Nitrogen 17 mg/dl (7-17); Carbon Dioxide 33 mmol/L (22.0-30.0); Creatinine Clearance Estimated 43 mL/min (50-200); Creatinine,Serum 0.90 mg/dl (0.52-1.04); Estimated Glomerular Filt Rate 61 ml/min (>60); GFR (African American) 74 ML/MIN (>60)
[2025-03-19 06:02] LABS: Albumin/Globulin Ratio 1.3 (1.1-1.8); Alkaline Phosphatase 85 U/L (38-126); Anion Gap 9.4 mEq/L (5-15); Bilirubin,Total 0.8 mg/dl (0.2-1.3); Calcium 9.0 mg/dl (8.4-10.2); Globulin 3.0 g/dL (1.3-3.2); Glucose 95 mg/dl (74-100); INR 0.95 (0.9-1.1); Prothrombin Time 10.6 seconds (10.1-12.5); Total Protein,Serum 6.8 g/dl (6.3-8.2)
[2025-03-19 06:14] LABS: Troponin I < 0.01 ng/ml (0.00-0.034)
[2025-03-19] MEDS: IOPAMIDOL-370 (76%);100ML BOTTLE 70 ML IV (06:30)
[2025-03-19] MEDS: 0.9 % SODIUM CHLORIDE 50 ML VIAL IV (06:30)
[2025-03-19] MEDS: SODIUM CHLORIDE 0.9% 10ML SYR (RAD ONLY) 10 ML IV (06:30)
--- NOTE | 2025-03-19 06:43 | [facility]H.EDCP ---
Discharge Plan Disposition Patient Disposition: Home, Self-Care Prescriptions Prescriptions: New doxycycline hyclate 100 mg capsule 100 mg PO BID 7 Days Qty: 14 0RF No Action ondansetron 4 mg tablet,disintegrating 4 mg PO Q8H PRN (Reason: nausea and vomiting) 5 Days Qty: 10 0RF azithromycin 500 mg tablet 500 mg PO DAILY 4 Days Qty: 4 0RF Rx Instructions: You were given your first dose today 04/05/2024, so please start taking this medication at home tomorrow 04/26. ondansetron 4 mg tablet,disintegrating 4 mg PO Q8H PRN (Reason: nausea and vomiting) 4 Days Qty: 12 0RF cefuroxime axetil 500 mg tablet 500 mg PO BID 10 Days Qty: 20 0RF Referrals Follow up/Referrals: Provider,MD Bethany [Primary Care Provider, Medical] - See instructions Celina Griffiths MD [Physician, Pulmonology] - See instructions Activity Restrictions/Add. Instructions Additional Instructions/Restrictions: At this time it was felt you are safe to be discharged home. If new or worsening symptoms please do not hesitate to return the emergency department. Clinical Impressions Clinical Impression: Atypical pneumonia Instructions Patient Instructions: DI for Acute Abdominal Pain Print Language Print Language: Vietnamese Discharge ED Provider: Martin Carty HPI <Martin Carty MD - Last Filed: 03/19/25 07:00> General Chief Complaint: Chest Pain Stated Complaint: Abd pain Time Seen by Provider: 03/19/25 05:15 Mode of Arrival: Ambulatory Source of Information: Patient Description of Symptoms (Recalled from ER Triage Doc. by RN): PT presents to the ED for evaluation of an initial c/o CP. Upon assessment PT has c/o of URQ pain. PT stated she woke up from sleep from the pain, 30 minutes prior to arrival. PT has gallbladder and appendix. History of Present Illness HPI narrative: 75-year-old female with history of fractured hip, BPPV presents to the ER for complaints of right low chest/right upper quadrant abdominal pain. Patient reports she woke up with the pain approximately 30 minutes prior to arrival. She has no history of appendectomy or cholecystectomy. She is not having any nausea or vomiting at this time. She states she was primarily concerned because 24 hours ago she was experiencing some vertigo. She took meclizine and her symptoms improved but she was feeling under the weather yesterday so when she woke up with right sided chest pain today she became worried it could be her heart though she has no previous history of cardiac problems. She states she has had a persistent cough over the last 5 weeks or so and is concerned about possible pneumonia or pleurisy. She is hoping it is just pleurisy. She states her pain is sharp and demonstrates to the right anterior and lateral lower ribs stating it is worse with deep breathing. No hemoptysis. She denies any chest pressure or radiation of pain. Denies any current nausea or vomiting. No headache or dizziness, no numbness, tingling, or weakness. No fevers or chills. No medications prior to arrival. No similar symptoms in the past. Related Data Previous Rx's ?Medication ?Instructions ?Recorded azithromycin 500 mg tablet 500 mg PO DAILY 4 days #4 tabs 04/05/24 cefuroxime axetil 500 mg tablet 500 mg PO BID 10 days #20 tabs 04/05/24 ondansetron 4 mg disintegrating 4 mg PO Q8H PRN nausea and 04/05/24 tablet vomiting 4 days #12 tabs ondansetron 4 mg disintegrating 4 mg PO Q8H PRN nausea and 11/09/24 tablet vomiting 5 days #10 tabs doxycycline hyclate 100 mg capsule 100 mg PO BID pneumonia 7 days #14 03/19/25 caps Allergies Allergy/AdvReac Type Severity Reaction Status Date / Time No Known Allergies Allergy Verified 04/05/24 09:42 [facility] <Martin Carty MD - Last Filed: 03/19/25 07:00> [facility] Disclaimer: The information contained in this section may have been updated after the patient was seen, as this information can be updated by other users. Medical History No significant past medical history Social History Smoking Status: Never smoker alcohol intake: never current occupational status: employed Travel in the last 8 weeks?: Inside the [place] Other Medical History Have you received the Flu Vaccine for this season: No Have you received the Pneumonia Vaccine: No <Martin Carty MD - Last Filed: 03/19/25 07:00> ROS Obtained: Yes Systems reviewed as appropriate & no additional complaints except as documented Per HPI Physical Exam <Martin Carty MD - Last Filed: 03/19/25 07:00> General General appearance: alert and in no apparent distress Head Head exam: atraumatic and normocephalic Eye Eye exam: Present PERRL and EOMI ENT ENT exam: Present mucous membranes moist Neck Neck exam: Present normal inspection and full ROM Chest Chest inspection: Present symmetric chest wall rise; Absent tenderness Expanded Chest Exam Female Torso:  1. Region of maximum discomfort though there is no tenderness, no overlying bruising, deformity, or crepitus with no traumatic findings Respiratory Respiratory exam: Present normal lung sounds bilaterally; Absent respiratory distress, wheezes or stridor Cardiovascular Cardiovascular exam: Present regular rate and normal rhythm Abdominal Exam Abdominal exam: Present soft; Absent distention, tenderness, guarding or rebound Extremities Exam Extremities exam: Present full ROM; Absent edema Neurological Exam Neurological exam: Present alert and oriented X3; Absent motor sensory deficit Psychiatric Psychiatric exam: Present normal affect and normal mood Skin Skin exam: Present warm and dry HEART Score <Martin Carty MD - Last Filed: 03/19/25 07:00> HEART Score HEART Score assessment performed?: Yes History (anamnesis): Slightly suspicious ECG: Normal Age: >65 years Risk factors: No known risk factors Troponin: </= normal limit HEART Score: 2 <Jose Duong MD - Last Filed: 03/19/25 09:23> HEART Score HEART Score: 2 Procedures <Martin Carty MD - Last Filed: 03/19/25 07:00> Miscellaneous Procedure Procedure Performed: Limited RUQ ultrasound Performed by: Martin Carty MD Indication: Right upper quadrant pain Identified structures: -Gallbladder -Gallbladder wall -Common bile duct -Liver Findings: Sonographic Noyola sign: Absent Gallstones: Absent Sludge: Absent Pericholecystic fluid: Absent Maximal GB wall thickness (mm): 2.1 mm Normal Common bile duct width (mm): 4.3 mm Normal Gallbladder width (cm): 3.1 cm Normal Gallbladder length (cm): [normal is < 10cm] Not measured Impression: Unremarkable right upper quadrant ultrasound Images were saved to permanent archive The study was technically adequate CPT 13472-54 This study was performed by me, and I personally interpreted all images/videos. Based on my clinical judgement, these images were adequate and did not necessitate further imaging. Critical Care <Martin Carty MD - Last Filed: 03/19/25 07:00> Critical Care Time Critical Care Time: No Medical Decision Making <Martin Carty MD - Last Filed: 03/19/25 07:00> Medical Records Medical records reviewed: Yes I reviewed the patient's medical records. Rush Inquiry Pt receiving controlled substance: No Vital Signs Vital Signs: 03/19/25 05:24 03/19/25 05:29 03/19/25 05:31 Temperature 98.9 F 98.9 F Temperature Source Oral Oral Pulse Rate 74 74 Pulse Rate [Right] 74 Respiratory Rate 16 16 Blood Pressure 139/78 Blood Pressure [Right Arm] 139/78 Blood Pressure Mean Blood Pressure Mean [Right Arm] 98 02 Sat by Pulse Oximetry 100 100 Oxygen Delivery Method Room Air Room Air 03/19/25 06:00 03/19/25 06:30 03/19/25 06:40 Temperature Temperature Source Pulse Rate 70 69 69 Pulse Rate [Right] Respiratory Rate 14 16 16 Blood Pressure 105/62 L 128/67 128/67 Blood Pressure [Right Arm] Blood Pressure Mean 76 83 Blood Pressure Mean [Right Arm] 02 Sat by Pulse Oximetry 93 L 98 97 Oxygen Delivery Method Room Air 03/19/25 07:00 03/19/25 07:30 03/19/25 08:00 Temperature Temperature Source Pulse Rate 74 66 64 Pulse Rate [Right] Respiratory Rate 19 16 14 Blood Pressure 119/66 105/60 L 102/54 L Blood Pressure [Right Arm] Blood Pressure Mean 87 75 Blood Pressure Mean [Right Arm] 02 Sat by Pulse Oximetry 96 96 97 Oxygen Delivery Method Room Air 03/19/25 08:30 Temperature Temperature Source Pulse Rate 69 Pulse Rate [Right] Respiratory Rate 15 Blood Pressure 111/59 L Blood Pressure [Right Arm] Blood Pressure Mean Blood Pressure Mean [Right Arm] 02 Sat by Pulse Oximetry 100 Oxygen Delivery Method Room Air Lab Data Labs: Lab Results 03/19/25 05:22: WBC 8.6, RBC 4.56, Hgb 13.1, Hct 40.5, MCV 88.8, MCH 28.7, MCHC 32.3, RDW 13.2, Plt Count 229, MPV 11.5 H, Neut % (Auto) 76.9, Lymph % (Auto) 11.1, Sharkey % (Auto) 7.6, Eos % (Auto) 3.1, Baso % (Auto) 0.5, Neut # (Auto) 6.6, Lymph # (Auto) 1.0, Sharkey # (Auto) 0.7, Eos # (Auto) 0.3, Baso # (Auto) 0.0, PT 10.6, INR 0.95, Sodium 139, Potassium 4.4, Chloride 101, Carbon Dioxide 33 H, Anion Gap 9.4, BUN 17, Creatinine 0.90, Estimated Creat Clear 43, Estimated GFR 61, Est GFR ( Amer) 74, Glucose 95, Calcium 9.0, Total Bilirubin 0.8, AST 21, ALT 16, Alkaline Phosphatase 85, Troponin I < 0.01, Total Protein 6.8, Albumin 3.8, Globulin 3.0, Albumin/Globulin Ratio 1.3, Lipase 70, HIV Ag/Ab Combo Qual Negative 03/19/25 06:40: Urine Color Yellow, Urine Appearance Clear, Urine pH 7.5, Ur Specific [place] 1.010, Urine Protein Negative, Urine Glucose (UA) Negative, Urine Ketones Negative, Urine Blood Negative, Urine Nitrate Negative, Urine Bilirubin Negative, Urine Urobilinogen 0.2, Ur Leukocyte Esterase 1+ A, Urine WBC 3-5, Ur Squamous Epith Cells 5-10 03/19/25 06:58: Chlamy pneumoniae PCR Not detected, Adenovirus (PCR) Not detected, B. pertussis DNA (PCR) Not detected, Coronavirus OC43 (PCR) Not detected, Coronavirus HKU1 (PCR) Not detected, Coronavirus 229E (PCR) Not detected, SARS-CoV-2 (PCR) Not detected, Coronavirus NL63 (PCR) Not detected, Human Metapneumovir PCR Not detected, Influenza A (H1) PCR Not detected, Influ A (H1N1/09) PCR Not detected, Influenza A (H3) PCR Not detected, Influenza Type A (PCR) Not detected, Influenza Type B (PCR) Not detected, M. pneumoniae (PCR) Not detected, Parainfluenza 1 (PCR) Not detected, Parainfluenza 2 (PCR) Not detected, Parainfluenza 3 (PCR) Not detected, Parainfluenza 4 (PCR) Not detected, RSV (PCR) Not detected, Entero/Rhino (PCR) Not detected 03/19/25 08:30: Troponin I < 0.01 03/19/25 05:22 03/19/25 05:22 Response Orders (Tests/Meds): ED MEDICATIONS Discontinued Medications Generic Name Dose Route Start Last Admin Trade Name Freq PRN Reason Stop Dose Admin Iopamidol 70 ml 03/19/25 06:28 03/19/25 06:30 Iopamidol-370 (76%);100ml Bottle IV 03/19/25 06:29 70 ml ONCE ONE Administration Sodium Chloride 50 ml 03/19/25 06:28 03/19/25 06:30 0.9 % Sodium Chloride 50 Ml Vial IV 03/19/25 06:29 50 ml ONCE ONE Administration Sodium Chloride 10 ml 03/19/25 06:28 03/19/25 06:30 Sodium Chloride 0.9% 10ml Syr (Rad Only) IV 03/19/25 06:29 10 ml ONCE ONE Administration ORDERS Category Date Time Status CT angio chest PE protocol Stat Cat Scan 03/19/25 05:30 Completed POCUS Point of Care (ER Only) Stat Exams 03/19/25 05:35 Completed Complete Blood Count Auto Diff Stat Lab 03/19/25 05:22 Completed Comprehensive Metabolic Panel Stat Lab 03/19/25 05:22 Completed Full Resp Panel w/COVID ([facility]) Routine Lab 03/19/25 06:58 Completed HIV Combo Stat Lab 03/19/25 05:22 Completed Hepatitis C Ab Qual. W/ RFX Stat Lab 03/19/25 05:22 Received Lipase Stat Lab 03/19/25 05:22 Completed Prothrombin Time INR Stat Lab 03/19/25 05:22 Completed Troponin I Q3H Lab 03/19/25 08:30 Completed Troponin I Q3H Lab 03/19/25 11:30 Ordered Troponin I Stat Lab 03/19/25 05:22 Completed Urinalysis and Microscopic Stat Lab 03/19/25 06:40 Completed Urine Culture Stat Micro 03/19/25 06:40 Received MDM Narrative Medical Decision Narrative: In summary, this 75-year-old female with comorbidities described in the HPI presents to the emergency department today with complaints of right low chest pain/right upper quadrant pain that is pleuritic in nature. On initial evaluation patient is hemodynamically stable, afebrile, nontoxic-appearing, cardiopulmonary exam benign, no peripheral edema, patient has no chest wall tenderness, no right upper quadrant abdominal tenderness despite the right lower chest/right upper quadrant being the region of patient's discomfort. Remainder of exam benign. Differential diagnosis includes but is not limited to ACS, PE, pneumonia, pneumothorax, pleurisy, pleural effusion, also considered the possibility of biliary colic or other biliary pathology though I have lower suspicion for this since patient has a nontender right upper quadrant, negative Noyola sign, and no nausea. Based on these concerns, I ordered hematologic and serum labs, cardiac workup, CT PE which will allow me to evaluate the lung parenchyma and for blood clot. ECG personally interpreted demonstrates normal sinus rhythm, rate 73, normal axis, normal OH and QTc, no STEMI. Patient does not want any pain medications at this time. No medications administered in the ER. Labs personally reviewed demonstrate no leukocytosis or anemia, normal platelets, PT/INR normal, CMP nonactionable, undetectable troponin, no transaminitis, lipase normal reassuring against pancreatitis. CTAPE personally interpreted does not demonstrate large segmental or subsegmental PE, patient does have slight parenchymal abnormalities at the apices bilaterally as well as an area of possible infiltrate versus pleuritic type lesion in the right lower lung. Radiology read pending. On reassessment patient continues to be resting comfortably, tolerating her pain without any medications. Right upper quadrant ultrasound personally performed and interpreted demonstrates no cholelithiasis or evidence of cholecystitis. See procedure note for details. Patient handed off to Dr. Duong in stable condition for further management, reassessment, and disposition. <Jose Duong MD - Last Filed: 03/19/25 09:23> Vital Signs Vital Signs: 03/19/25 05:24 03/19/25 05:29 03/19/25 05:31 Temperature 98.9 F 98.9 F Temperature Source Oral Oral Pulse Rate 74 74 Pulse Rate [Right] 74 Respiratory Rate 16 16 Blood Pressure 139/78 Blood Pressure [Right Arm] 139/78 Blood Pressure Mean Blood Pressure Mean [Right Arm] 98 02 Sat by Pulse Oximetry 100 100 Oxygen Delivery Method Room Air Room Air 03/19/25 06:00 03/19/25 06:30 03/19/25 06:40 Temperature Temperature Source Pulse Rate 70 69 69 Pulse Rate [Right] Respiratory Rate 14 16 16 Blood Pressure 105/62 L 128/67 128/67 Blood Pressure [Right Arm] Blood Pressure Mean 76 83 Blood Pressure Mean [Right Arm] 02 Sat by Pulse Oximetry 93 L 98 97 Oxygen Delivery Method Room Air 03/19/25 07:00 03/19/25 07:30 03/19/25 08:00 Temperature Temperature Source Pulse Rate 74 66 64 Pulse Rate [Right] Respiratory Rate 19 16 14 Blood Pressure 119/66 105/60 L 102/54 L Blood Pressure [Right Arm] Blood Pressure Mean 87 75 Blood Pressure Mean [Right Arm] 02 Sat by Pulse Oximetry 96 96 97 Oxygen Delivery Method Room Air 03/19/25 08:30 Temperature Temperature Source Pulse Rate 69 Pulse Rate [Right] Respiratory Rate 15 Blood Pressure 111/59 L Blood Pressure [Right Arm] Blood Pressure Mean Blood Pressure Mean [Right Arm] 02 Sat by Pulse Oximetry 100 Oxygen Delivery Method Room Air Lab Data Labs: Lab Results 03/19/25 05:22: WBC 8.6, RBC 4.56, Hgb 13.1, Hct 40.5, MCV 88.8, MCH 28.7, MCHC 32.3, RDW 13.2, Plt Count 229, MPV 11.5 H, Neut % (Auto) 76.9, Lymph % (Auto) 11.1, Sharkey % (Auto) 7.6, Eos % (Auto) 3.1, Baso % (Auto) 0.5, Neut # (Auto) 6.6, Lymph # (Auto) 1.0, Sharkey # (Auto) 0.7, Eos # (Auto) 0.3, Baso # (Auto) 0.0, PT 10.6, INR 0.95, Sodium 139, Potassium 4.4, Chloride 101, Carbon Dioxide 33 H, Anion Gap 9.4, BUN 17, Creatinine 0.90, Estimated Creat Clear 43, Estimated GFR 61, Est GFR ( Amer) 74, Glucose 95, Calcium 9.0, Total Bilirubin 0.8, AST 21, ALT 16, Alkaline Phosphatase 85, Troponin I < 0.01, Total Protein 6.8, Albumin 3.8, Globulin 3.0, Albumin/Globulin Ratio 1.3, Lipase 70, HIV Ag/Ab Combo Qual Negative 03/19/25 06:40: Urine Color Yellow, Urine Appearance Clear, Urine pH 7.5, Ur Specific [place] 1.010, Urine Protein Negative, Urine Glucose (UA) Negative, Urine Ketones Negative, Urine Blood Negative, Urine Nitrate Negative, Urine Bilirubin Negative, Urine Urobilinogen 0.2, Ur Leukocyte Esterase 1+ A, Urine WBC 3-5, Ur Squamous Epith Cells 5-10 03/19/25 06:58: Chlamy pneumoniae PCR Not detected, Adenovirus (PCR) Not detected, B. pertussis DNA (PCR) Not detected, Coronavirus OC43 (PCR) Not detected, Coronavirus HKU1 (PCR) Not detected, Coronavirus 229E (PCR) Not detected, SARS-CoV-2 (PCR) Not detected, Coronavirus NL63 (PCR) Not detected, Human Metapneumovir PCR Not detected, Influenza A (H1) PCR Not detected, Influ A (H1N1/09) PCR Not detected, Influenza A (H3) PCR Not detected, Influenza Type A (PCR) Not detected, Influenza Type B (PCR) Not detected, M. pneumoniae (PCR) Not detected, Parainfluenza 1 (PCR) Not detected, Parainfluenza 2 (PCR) Not detected, Parainfluenza 3 (PCR) Not detected, Parainfluenza 4 (PCR) Not detected, RSV (PCR) Not detected, Entero/Rhino (PCR) Not detected 03/19/25 08:30: Troponin I < 0.01 Response Orders (Tests/Meds): ED MEDICATIONS Discontinued Medications Generic Name Dose Route Start Last Admin Trade Name Freq PRN Reason Stop Dose Admin Iopamidol 70 ml 03/19/25 06:28 03/19/25 06:30 Iopamidol-370 (76%);100ml Bottle IV 03/19/25 06:29 70 ml ONCE ONE Administration Sodium Chloride 50 ml 03/19/25 06:28 03/19/25 06:30 0.9 % Sodium Chloride 50 Ml Vial IV 03/19/25 06:29 50 ml ONCE ONE Administration Sodium Chloride 10 ml 03/19/25 06:28 03/19/25 06:30 Sodium Chloride 0.9% 10ml Syr (Rad Only) IV 03/19/25 06:29 10 ml ONCE ONE Administration ORDERS Category Date Time Status CT angio chest PE protocol Stat Cat Scan 03/19/25 05:30 Completed POCUS Point of Care (ER Only) Stat Exams 03/19/25 05:35 Completed Complete Blood Count Auto Diff Stat Lab 03/19/25 05:22 Completed Comprehensive Metabolic Panel Stat Lab 03/19/25 05:22 Completed Full Resp Panel w/COVID ([facility]) Routine Lab 03/19/25 06:58 Completed HIV Combo Stat Lab 03/19/25 05:22 Completed Hepatitis C Ab Qual. W/ RFX Stat Lab 03/19/25 05:22 Received Lipase Stat Lab 03/19/25 05:22 Completed Prothrombin Time INR Stat Lab 03/19/25 05:22 Completed Troponin I Q3H Lab 03/19/25 08:30 Completed Troponin I Q3H Lab 03/19/25 11:30 Ordered Troponin I Stat Lab 03/19/25 05:22 Completed Urinalysis and Microscopic Stat Lab 03/19/25 06:40 Completed Urine Culture Stat Micro 03/19/25 06:40 Received ECG Data Tracing #1: ECG Narrative: Independently interpreted by me rate is 73 rhythm is regular axis is normal no ST elevation in anatomical contiguous leads QTc 396. MDM Narrative Medical Decision Narrative: In summary, this 75-year-old female with comorbidities described in the HPI presents to the emergency department today with complaints of right low chest pain/right upper quadrant pain that is pleuritic in nature. On initial evaluation patient is hemodynamically stable, afebrile, nontoxic-appearing, cardiopulmonary exam benign, no peripheral edema, patient has no chest wall tenderness, no right upper quadrant abdominal tenderness despite the right lower chest/right upper quadrant being the region of patient's discomfort. Remainder of exam benign. Differential diagnosis includes but is not limited to ACS, PE, pneumonia, pneumothorax, pleurisy, pleural effusion, also considered the possibility of biliary colic or other biliary pathology though I have lower suspicion for this since patient has a nontender right upper quadrant, negative Noyola sign, and no nausea. Based on these concerns, I ordered hematologic and serum labs, cardiac workup, CT PE which will allow me to evaluate the lung parenchyma and for blood clot. ECG personally interpreted demonstrates normal sinus rhythm, rate 73, normal axis, normal OH and QTc, no STEMI. Patient does not want any pain medications at this time. No medications administered in the ER. Labs personally reviewed demonstrate no leukocytosis or anemia, normal platelets, PT/INR normal, CMP nonactionable, undetectable troponin, no transaminitis, lipase normal reassuring against pancreatitis. CTAPE personally interpreted does not demonstrate large segmental or subsegmental PE, patient does have slight parenchymal abnormalities at the apices bilaterally as well as an area of possible infiltrate versus pleuritic type lesion in the right lower lung. Radiology read pending. On reassessment patient continues to be resting comfortably, tolerating her pain without any medications. Right upper quadrant ultrasound personally performed and interpreted demonstrates no cholelithiasis or evidence of cholecystitis. See procedure note for details. Patient handed off to Dr. Duong in stable condition for further management, reassessment, and disposition. Jose Duong: Upon assumption of care patient is hemodynamically stable. Workup thus far reviewed by me hematologic labs are nonactionable no significant leukocytosis no transfusable anemia no coagulopathy no NORMAN or critical electrolyte abnormality initial troponin undetectably low lipase normal. CT chest informally interpreted by me there are atypical opacities at the bilateral apices, adjacent to the fissure between the pulmonary lobes on the right, at the peripheral of the bottom of the right upper lobe adjacent to the thoracic cage where patient's pain is located, there is no saddle pulmonary embolism, no segmental pulmonary embolism. 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 Given that patient has had subacute cough for 5 weeks has not completed course of antibiotics atypical coverage will be conducted with doxycycline and patient will follow-up with Dr. Griffiths on an outpatient basis. Patient was discharged in stable condition given return precautions.
[2025-03-19 06:50] LABS: Microscopic, Urine URINE MICROSCOPIC (MICROSCOPIC)
[2025-03-19 06:57] LABS: Bilirubin,Urine Negative (Negative); Color,Urine YELLOW (Yellow); Glucose,Urine (UA) Negative (Negative); Ketones,Urine Negative (Negative); Leukocyte Esterase,Urine 1+ (Negative); PH,Urine 7.5 (5.0-8.5); Protein,Urine Negative (Negative); Specific Gravity, Urine 1.010 (1.005-1.030); Urobilinogen,Urine 0.2 EU/dl (0.2)
[2025-03-19 07:00] LABS: Adenovirus,PCR Not Detected (NotDetected); Chlamydophila Pneumoniae, PCR Not Detected (NotDetected); Coronavirus 19, PCR Not Detected (NotDetected); Coronovirus HKU1,PCR Not Detected (NotDetected); Influenza A, PCR Not Detected (NotDetected); Influenza AH1, 2009 Not Detected (NotDetected); Influenza AH1, PCR Not Detected (NotDetected); Influenza AH3,PCR Not Detected (NotDetected); Influenza B, PCR Not Detected (NotDetected); Mycoplasma Pneumoniae, PCR Not Detected (NotDetected); Parainfluenza 1, PCR Not Detected (NotDetected); Parainfluenza 2, PCR Not Detected (NotDetected); Parainfluenza 3, PCR Not Detected (NotDetected); Parainfluenza 4, PCR Not Detected (NotDetected)
[2025-03-19 09:04] LABS: Troponin I < 0.01 ng/ml (0.00-0.034)
[2025-03-19 13:10] LABS: Hepatitis C Ab Qual. W/ RFX NEGATIVE (Negative)
== END 2025-03-19 09:34 | disposition home or self-care (01) ==
PROVIDERS: Emergency Medicine; Emergency Provider Emergency Medicine
DX: R07.89 Other chest pain (principal); J18.9 Pneumonia, unspecified organism
CPT/HCPCS: 0223U; 71275; 80053; 81001; 83690; 84484; 85025; 85610; 86803; 87086; 87389; 93005; 99285; Q9967

== ENCOUNTER 2025-05-02 10:23 | Emergency (ER) | payer MEDICARE, SELFPAY ==
--- OUTSIDE RECORDS SUMMARY | 2024-04-09 06:30 | XMS_ITS ---
Author Organization [facility] Address [address] [facility] [address] [place] [id number] Care Team Providers Care Necktie Turner Name Role Phone Amie Chaparro Primary Care Provider [phone] Quinton German Unavailable [phone] Allergies No Known Allergies Results Component Value Reference Range Notes CXR Reviewed date:04/29/2024 03:48:19 PM Interpretation:slight improvement, continued f/u or CT recommended Performing Lab: Notes/Report: slight improvement, continued f/u or CT recommended REASON FOR VISIT follow up from walking [place] Medications Medication SIG (Take, Route, Frequency, Duration) Notes Start Date End Date Status Meclizine HCl 25 MG 1 tab(s) orally 3 ti mes a day 06/17/2020 Active Cefuroxime Axetil 500 MG 1 tablet Orally every 12 hrs; Duration: 5 day(s) Active Ondansetron HCl 4 MG 1 tablet Orally Onc e a day; Duration: 30 day(s) Active Vital Signs Weight 126.4 lbs 04/09/2024 Blood pressure systolic 122 mm Hg 04/09/20 24 Blood pressure diastolic 70 mm Hg 024 Heart Rate 76 /min 04/09/2024 Height 64 in 04/09/2024 BMI 21.69 kg/m2 04/09/2024 Encounters Encounter Location Date Provider Diagnosis [facility] 36 [facility] [address] [place] [id number] 04/09/2024 Amie Chaparro Pneumonia J18 .9 Assessments Encounter Date Diagnosis (ICD Code) Assessment Notes Treatment Notes Treatment Clinical Notes Section Notes 04/09/2024 Pneumonia (ICD-10 - J18.9) She has completed her course of Zithromax and continues on Ceftin. Plan to repeat chest x-ray in 10 to 14 days Plan Of Treatment Treatment Notes Assessment Notes Pneumonia She has completed he r course of Zithromax and continues on Ceftin. Plan to repeat chest x-ray in 10 to 14 days Next Appt Details Follow Up: via phone to repo rt test results, Reason: Progress Notes * KATH HASASNDOB:1950 ([age] yo F)Acc No.[id number]:04/09/2024 Progress Notes Patient: KATH VILLANUEVA Provider: Amie Chaparro M.D. :1950 A ge:74 Y S ex:Female Date:04/09/2024 Address:[address] [place] [address], [id number] Subjective: * Chief Complaints: * 1 . [place] . * HPI: E NT/respiratory: Kath was seen in the emergency room over the weekend with a 4 to 5-day history of increasing chest congestion, cough, fatigue and shortness of breath. On workup, she was found to have left lower lobe consolidation on chest x-ray and elevated white count. There was some concern for UTI as well. She received fluids in the ER and was started on Ceftin and Zithromax. She comes in today feeling somewhat better but still has a persistent dry cough and general fatigue and weakness. She denies pleuritic chest pain, hemoptysis, or fever. * ROS: D ERMATOLOGY: no R ty. n o H adia. G ASTROENTEROLOGY: Vomiting y es, o nce this am. n o D iarrhea.? U ROLOGY: no D ifficulty urinating. n o B lood in urine. * Medical History: M edical History Verified. * Surgical History: b tl . * Family History: F ather: . M other: alive. 1 son(s) , 3 daughter(s) - healthy. . * Social History: C URRENT TOBACCO USE S moking Status: Patient does NOT smoke. C affeine: yes, frequency:coffee. Home smoke detector use: yes. Marital Status: . Past smoking status: no. * Medications: T aking Ondansetron HCl 4 MG Tablet 1 tablet Orally Once a day , Taking Cefuroxime Axetil 500 MG Tablet 1 tablet Orally every 12 hrs , Taking Meclizine HCl 25 MG Tablet 1 tab(s) orally 3 times a day , Medication List reviewed and reconciled with the patient * Allergies: N .K.D.A. Objective: * Vitals: W t:126.4, Temp:97.6, BP:122/70, HR:76, O2 Sat:99% on RA, Nurse:CHRIS, Ht: 64, BMI:21.69. * Examination: E NT/Respiratory: General Appearance: N o respiratory distress. E yes:?PERRLA, sclera clear. E ars: a uditory canals normal bilaterally, TM's WNL. N ose :?normal, no lesions, nares patent. O ral cavity : n o erythema or exudate seen on pharynx. N dang : n o cervical lymphadenopathy. H eart : R RR, normal S1 S2, no murmurs.?Lungs: D iminished breath sounds in left base compared to right. No rales or wheezes..? Assessment: * Assessment: 1. Nicol lowery - J18.9 (Primary) Plan: * Treatment: Notes: She has completed her course of Zithromax and continues on Ceftin. Plan to repeat chest x-ray in 10 to 14 days?? * Procedure Codes: 9 4760 PULSE OX * Follow Up: v ia phone to report test results * Images: Billing Information: * Visit Code: 89350 Office Visit, Est Pt., Level 3. * Procedure Codes: 78848 PULSE OX. * Electronic signature of Amie Chaparro MD on 05/02/2025 at 10:37 AM EST Sign off status: Pending * Provider: Amie Chaparro M.D. Date: 06/09/2023 Generated for Imelda vides/Marimar/Josephine on: 07/02/2024 10:37 AM EST History and Physical Notes * Examination Category Sub-Category Detail Notes Category Not es ENT/Respiratory Oral cavity : no erythema or exudate s een on pharynx Ears: auditory canals norm al bilaterally, TM's WNL Neck : no cervical lymphade nopathy Heart : RRR, normal S1 S2, n o murmurs Lungs: Diminished breath so unds in left base compared to right. No rales or wheezes. General Appearance: No respiratory distr ess Nose : normal, no lesions, nares patent Eyes: PERRLA, sclera clear
[2025-05-02 10:29] VITALS: BP 173/81; PULSE 72; RESP 18; TEMP 36.7; O2SAT 100; BMI 20.5
--- NOTE | 2025-05-02 10:32 | XR_ITS ---
PROCEDURE INFORMATION: Exam: XR Left Wrist Exam date and time: 05/02/2025 10:36 AM Age: 75 years old Clinical indication: Injury or trauma; Fall; Blunt trauma (contusions or hematomas); Wrist; Left; Injury details: Swelling and pain TECHNIQUE: Imaging protocol: Radiologic exam of the left wrist. Views: 3 or more views. COMPARISON: No relevant prior studies available. FINDINGS: Bones/joints: Subjective osteopenia. Comminuted, minimally displaced fracture of the distal radius with sagittal split components, and intra-articular extension. Mild incongruence of the distal radius articular surface. Mild widening of the scapholunate interval (4 mm). Soft tissues: [id number] wrist soft tissue swelling. No radiopaque foreign body or gas. IMPRESSION: 1. Comminuted, minimally displaced intra-articular distal radius fracture. 2. Mild widening of the scapholunate interval (4 mm). Nonspecific. A component of ligamentous injury may be present. When feasible, consider MRI for complete evaluation.
--- OUTSIDE RECORDS SUMMARY | 2025-05-02 10:38 | XMS_ITS | Patient Health Record ---
[facility] Address [address] [facility] [address] [place] [id number] Care Team Providers Care Utilities Service Investigator Name Role Phone Amie Chaparro Primary Care Provider [phone] Quinton German Unavailable [phone] Allergies No Known Allergies Reason For Referral No Information Medications Medication [...] Administered COVID 19 Moderna Unknown 07/01/2020 Administered Plan Of Treatment Pending Test Test Name Order Date H-Monoscreen (rapid) 03/19/2023 Insurance Providers Payer Name Payer Address Payer Phone Subscriber Number Group Number Insured Name Patient Relationship to Insured Coverage Start Date Coverage End Date [facility] [address] [address] [place] [phone] [id number] JAVED HASSAN Self - patient is the insured Medical (General) History Surgical History Surgery Date(Month/Year) btl
--- NOTE | 2025-05-02 11:01 | ED_ITS ---
Discharge Plan Disposition Patient Disposition: Home, Self-Care Prescriptions Prescriptions: No Action ondansetron 4 mg tablet,disintegrating 4 mg PO Q8H PRN (Reason: nausea and vomiting) 5 Days Qty: 10 0RF doxycycline hyclate 100 mg capsule 100 mg PO BID 7 Days Qty: 14 0RF azithromycin 500 mg tablet 500 mg PO DAILY 4 Days Qty: 4 0RF Rx Instructions: You were given your first dose today 04/05/2024, so please start taking this medication at home tomorrow 04/26. ondansetron 4 mg tablet,disintegrating 4 mg PO Q8H PRN (Reason: nausea and vomiting) 4 Days Qty: 12 0RF cefuroxime axetil 500 mg tablet 500 mg PO BID 10 Days Qty: 20 0RF Referrals Follow up/Referrals: Calin Poon DO [Staff Physician, Orthopedics] - See instructions Provider,Referral, [Referring, Medical] - See instructions Clinical Impressions Clinical Impression: Fracture, radius Instructions Patient Instructions: DI for Forearm Fracture Print Language Print Language: Spanish Discharge ED Provider: Marcell Wells General Adult HPI General Chief complaint: Extremity Injury, Upper Stated complaint: AO- Fall 914- Pain in R wrist Time Seen by Provider: 05/02/25 10:37 Mode of Arrival: Ambulatory Source of Information: Patient Description of Symptoms (Recalled from ER Triage Doc. by RN): States she fell at [employer]. Complaint of left wrist pain. No other injuries noted. History of Present Illness HPI narrative: She is a 75 yo female who presents after a fall from standing at [employer]. tripped, mechanical fall. did not lose consciousness or hit her head. denies pain other than her left wrist. Related Data Previous Rx's ?Medication ?Instructions ?Recorded azithromycin 500 mg tablet 500 mg PO DAILY 4 days #4 t abs 04/05/24 cefuroxime axetil 500 mg tablet 500 mg PO BID 10 days #20 tabs 04/05/24 ondansetron 4 mg disintegrating 4 mg PO Q8H PRN nausea and 04/05/24 tablet vomiting 4 days #12 tabs ondansetron 4 mg disintegrating 4 mg PO Q8H PRN nausea and 11/09/24 tablet vomiting 5 days #10 tabs doxycycline hyclate 100 mg capsule 100 mg PO BID pneum onia 7 days #14 03/19/25 caps Allergies Allergy/AdvReac Type Severity Reaction Status Date / Time No Known Allergies Allergy Verified 04/05/24 09:42 [facility] Disclaimer: The information contained in this section may have been updated after the patient was seen, as this information can be updated by other users. Medical History No significant past medical history Social History Smoking Status: Never smoker alcohol intake: never current occupational status: employed Travel in the last 8 weeks?: Inside the [place] Have you lived/traveled outside [place] in past 30 days?: No Contact w/someone who lives/traveled outside [place] past 30 days?: No Exposure to someone with infectious disease in past 14 days?: No Do you have a fever (greater than 100.4 F or 38 C)?: No Have you tested positive for COVID-19?: No Exposed to someone with COVID-19 in past 14 days?: No Do you have a sore throat?: No Do you have a cough?: No Do you have any weakness?: No Do you have any diarrhea?: No Are you experiencing any unusual bleeding?: No Do you have any muscle aches/pain?: No Do you have any abdominal pain?: No Are you experiencing loss of taste or smell?: No Other Medical History Have you received the Flu Vaccine for this season: No Have you received the Pneumonia Vaccine: No ROS Obtained: Yes All systems reviewed & no additional complaints except as documented Physical Exam General General appearance: alert Head Head exam: atraumatic Eye Eye exam: Present normal appearance ENT ENT exam: Present normal exam Neck Neck exam: Present normal inspection Chest Chest inspection: Present normal inspection Respiratory Respiratory exam: Present normal lung sounds bilaterally Cardiovascular Cardiovascular exam: Present regular rate Abdominal Exam Abdominal exam: Present soft and tenderness Extremities Exam Extremities exam: Present other (left wrist hematoma distal to left radius, radial pulse palpable, no numbness, tingling, or sensory deficit in any distribution, tender over the distal radius. pin, ain, radial motor distributions intact) Neurological Exam Neurological exam: Present alert Psychiatric Psychiatric exam: Present normal affect Skin Skin exam: Present warm and intact Medical Decision Making Medical Records Medical records reviewed: Yes I reviewed the patient's medical records. Screening: Per USPSTF and CDC recommendations, given the prevalence of disease in our region, it is our hospital?s policy to screen for HIV and viral Hepatitis for all patients aged 18 and over and those with ongoing risk factors. [facility] Inquiry Pt receiving controlled substance: No Vital Signs: 05/02/25 10:29 05/02/25 12:15 Temperature 98.0 F 98 F Temperature Source Oral Oral Pulse Rate 83 Pulse Rate [Radial] 72 Respiratory Rate 18 20 Blood Pressure 173/81 H Blood Pressure [Right Arm] 173/81 H Blood Pressure Mean [Right Arm] 111 Blood Pressure Source Automatic Cuff Blood Pressure Source [Right Arm] Automatic Cuff Blood Pressure Position Sitting Blood Pressure Position [Right Arm] Sitting 02 Sat by Pulse Oximetry 100 Oxygen Delivery Method Room Air Room Air Orders (Tests/Meds): ORDERS Category Date Time Status Wrist XR left minimum 3 views [XR wrist LT min 3V] Stat Exams 05/02/25 10:32 Completed Medical Decision Narrative: left wrist x-ray with minimally displaced distal radius fracture She was placed in a left sugar tong splint and will follow-up with Dr. Poon outpatient Procedures Orthopedic Splinting/Casting distal radius : Side: left Upper Extremity Injury Location: wrist Upper Extremity Immobilizer: sugar tong splint Post Cast/Splinting Neuro Status: intact Post Cast/Splinting Vasc Status: intact Critical Care Critical Care Time Critical Care Time: No
[2025-05-02 12:15] VITALS: BP 173/81; PULSE 83; RESP 20; TEMP 36.6; O2SAT 100
== END 2025-05-02 12:15 | disposition home or self-care (01) ==
PROVIDERS: Emergency Provider Student in an Organized Health Care Education/Training Program; PCP Family Medicine
DX: S52.572A Other intraarticular fracture of lower end of left radius, initial encounter for closed fracture (principal); W18.30XA Fall on same level, unspecified, initial encounter
CPT/HCPCS: 29125; 73110; 99283

== ENCOUNTER 2025-05-17 09:01 | Outpatient (CLI) | payer MEDICARE, SELFPAY ==
--- NOTE | 2025-05-17 09:03 | XR_ITS ---
PROCEDURE INFORMATION: Exam: XR Left Wrist Exam date and time: 05/17/2025 9:05 AM Age: 75 years old Clinical indication: Pain; Wrist; Left; Additional info: Left wrist FX TECHNIQUE: Imaging protocol: Radiologic exam of the left wrist. Views: 3 or more views. COMPARISON: CR XR WRIST LT MIN 3V 05/02/2025 10:36 AM FINDINGS: Bones/joints: Subjective osteopenia. Significant interval healing changes of the comminuted, minimally displaced distal reduce metadiaphyseal fracture with intra-articular extension. Fracture gap still visible. No new fracture or malalignment. Not well seen on this study, mild widening of the scapholunate interval is present, suggestive of a component of ligamentous injury. Soft tissues: [id number] diffuse soft tissue swelling of the entire imaged left upper extremity (mid to distal forearm 2 tip of the fingers). IMPRESSION: 1. Significant interval healing changes of the comminuted, minimally displaced distal reduce metadiaphyseal fracture with intra-articular extension. Fracture gap still visible. No new fracture or malalignment. 2. Not well seen on this study, mild widening of the scapholunate interval is present, suggestive of a component of ligamentous injury. When feasible, recommend MRI for complete evaluation.
== END 2025-05-17 23:59 ==
LOC: RAD 09:02
PROVIDERS: PCP Family Medicine; Visit Provider Orthopaedic Surgery
DX: M85.88 Other specified disorders of bone density and structure, other site; S52.512D Displaced fracture of left radial styloid process, subsequent encounter for closed fracture with routine healing; X58.XXXD Exposure to other specified factors, subsequent encounter
CPT/HCPCS: 73110